=== PATIENT | female | born 1955 | race Caucasian/White ===

== ENCOUNTER → 2017-03-22 | Outpatient (CLI) | payer OTHER ==
[~2017-03-22] MED LIST: ADV250 IH; ALBU8.5H3 IH; CYCL10 PO; EVEP1CAP PO; FLUT16H NASAL; LOSA100T29 PO; MULT-68 PO; SOY155CA AD; SUMA25TA9 PO
== END | disposition home or self-care (01) ==
LOC: RADPV 11:03
PROVIDERS: ATTEND Internal Medicine
DX: I87.2 Venous insufficiency (chronic) (peripheral) (principal)
CPT/HCPCS: 93970

== ENCOUNTER → 2017-04-23 | Outpatient (CLI) | payer OTHER ==
[2017-04-23 16:44] LABS: BASOPHILS % (AUTO) 0.5 % (0.0-2.0); HEMATOCRIT 41.9 % (36-46); HEMOGLOBIN 14.2 g/dL (12.0-16.0); LYMPHOCYTES # (AUTO) 2.1 K/uL (1.0-4.8); LYMPHOCYTES % (AUTO) 33.5 % (22.0-44.0); MEAN CORPUSCULAR HEMOGLOBIN 29.9 pg (26.0-34.0); MEAN CORPUSCULAR HGB CONC 33.8 G/dL (31.0-37.0); MEAN CORPUSCULAR VOLUME 88 fL (80-100); MONOCYTES # (AUTO) 0.5 K/uL (0.1-1.0); NEUTROPHILS # (AUTO) 3.5 K/uL (1.8-7.7); PLATELET COUNT (AUTO) 226 K/uL (150-450); RED BLOOD CELL COUNT(AUTO) 4.74 MIL/uL (4.00-5.20); RED CELL DISTRIBUTION WIDTH 14.2 % (11.5-14.5); WHITE BLOOD COUNT (AUTO) 6.4 K/uL (4.5-11.0)
[2017-04-23 17:09] LABS: HEMOGLOBIN A1C 6.1 % (4.5-6.2)
[2017-04-23 17:22] LABS: ALANINE AMINOTRANSFERASE 90 U/L (12-78); ALBUMIN 3.8 g/dL (3.4-5.0); ANION GAP 8 mmol/L (8-16); ASPARTATE AMINOTRANSFERASE 57 U/L (15-37); BILIRUBIN,TOTAL 0.3 mg/dL (0.1-1.0); CALCIUM, TOTAL 8.9 mg/dL (8.8-10.5); CARBON DIOXIDE 27 mmol/L (22-29); CHLORIDE 102 mmol/L (98-107); CHOL/HDL RATIO 4.1 (3.9-5.7); GLOMERULAR FILTR. RATE CALC > 60 mL/min (>60); SODIUM SERUM 137 mmol/L (136-145); THYROID STIMULATING HORMONE 3.15 uIU/mL (0.36-3.74); TOTAL PROTEIN, SERUM 7.5 g/dL (6.4-8.2); UREA NITROGEN, BLOOD 13 mg/dL (7-18)
== END | disposition home or self-care (01) ==
LOC: LABPV 15:37
PROVIDERS: ATTEND Internal Medicine
DX: Z00.00 Encounter for general adult medical examination without abnormal findings (principal); Z79.899 Other long term (current) drug therapy
CPT/HCPCS: 83036; 84443

== ENCOUNTER → 2017-05-09 | Outpatient (CLI) | payer OTHER ==
[2017-05-09 12:43] LABS: ALBUMIN 3.8 g/dL (3.4-5.0); BILIRUBIN,TOTAL 0.5 mg/dL (0.1-1.0); TOTAL PROTEIN, SERUM 7.4 g/dL (6.4-8.2)
[2017-05-09 12:44] LABS: BILIRUBIN,DIRECT 0.1 mg/dL (0.00-0.20)
== END | disposition home or self-care (01) ==
LOC: LABPV 09:15
PROVIDERS: ATTEND Internal Medicine
DX: K76.0 Fatty (change of) liver, not elsewhere classified (principal)

== ENCOUNTER → 2017-05-14 | Outpatient (CLI) | payer OTHER | END | disposition home or self-care (01) | LOC: RADMN 15:55 | PROVIDERS: ATTEND Orthopaedic Surgery | DX: M17.12 Unilateral primary osteoarthritis, left knee (principal); Z91.81 History of falling; M25.762 Osteophyte, left knee ==

== ENCOUNTER → 2017-05-27 | Outpatient (CLI) | payer OTHER | END | disposition home or self-care (01) | LOC: RADPV 08:09 | PROVIDERS: ATTEND Internal Medicine | DX: R16.0 Hepatomegaly, not elsewhere classified (principal); Z90.49 Acquired absence of other specified parts of digestive tract | CPT/HCPCS: 76700 ==

== ENCOUNTER → 2017-06-07 | Outpatient (CLI) | payer OTHER | END | disposition home or self-care (01) | LOC: RADMN 15:44 | PROVIDERS: ATTEND Internal Medicine | DX: J45.909 Unspecified asthma, uncomplicated (principal) | CPT/HCPCS: 71020 ==

== ENCOUNTER 2017-09-09 09:57 | Inpatient (IN) | payer OTHER ==
[2017-09-03 12:37] LABS: BASOPHILS % (AUTO) 0.9 % (0.0-2.0); EOSINOPHILS % (AUTO) 1.6 % (1.0-6.0); HEMATOCRIT 40.2 % (36-46); HEMOGLOBIN 13.6 g/dL (12.0-16.0); LYMPHOCYTES # (AUTO) 1.4 K/uL (1.0-4.8); LYMPHOCYTES % (AUTO) 21.7 % (22.0-44.0); MEAN CORPUSCULAR HEMOGLOBIN 30.4 pg (26.0-34.0); MEAN CORPUSCULAR HGB CONC 33.8 G/dL (31.0-37.0); MEAN CORPUSCULAR VOLUME 90 fL (80-100); MONOCYTES # (AUTO) 0.4 K/uL (0.1-1.0); NEUTROPHILS # (AUTO) 4.5 K/uL (1.8-7.7); NEUTROPHILS % (AUTO) 69.8 % (40.0-70.0); PLATELET COUNT (AUTO) 202 K/uL (150-450); RED BLOOD CELL COUNT(AUTO) 4.47 MIL/uL (4.00-5.20); RED CELL DISTRIBUTION WIDTH 13.8 % (11.5-14.5)
[2017-09-03 12:45] LABS: ANION GAP 9 mmol/L (8-16); CARBON DIOXIDE 26 mmol/L (22-29); CHLORIDE 103 mmol/L (98-107); CREATININE 0.73 mg/dL (0.60-1.30); GLOMERULAR FILTR. RATE CALC > 60 mL/min (>60); GLUCOSE,RANDOM 101 mg/dL (70-110); POTASSIUM 3.7 mmol/L (3.5-5.1); SODIUM SERUM 138 mmol/L (136-145); UREA NITROGEN, BLOOD 20 mg/dL (7-18)
[2017-09-03 12:48] LABS: INR 1.1 (0.9-1.1); PROTHROMBIN TIME 11.3 SEC (9.4-11.6)
[2017-09-03 12:51] LABS: ALANINE AMINOTRANSFERASE 72 U/L (12-78); ALBUMIN 3.8 g/dL (3.4-5.0); ALKALINE PHOSPHATASE 79 U/L (46-116); ASPARTATE AMINOTRANSFERASE 42 U/L (15-37); BILIRUBIN,TOTAL 0.5 mg/dL (0.1-1.0); TOTAL PROTEIN, SERUM 7.2 g/dL (6.4-8.2)
[~2017-09-09] VITALS: Ht 170.2 cm; Wt 115.0 kg
[~2017-09-09 09:57] MED LIST changes: +BUPIVACAINE HCL 0.5% 50 ML VIAL ONE; +CeFAZolin 2 GM/DEXTROSE 0 ML IV ONE; +CeFAZolin 2 GM/DEXTROSE 50 ML IV ONE; +EPHEDrine SULFATE 50 MG/ML VIAL IM ONE; +FentaNYL CITRATE-PF 100 MCG/2 ML VIAL IVP ONE; +GLYCOPYRROLATE 0.2 MG/ML VIAL IM ONE; +KETAMINE HCL 50 MG/ML 10 ML VIAL IVP ONE; +LIDOCAINE HCL/PF 2% 5 ML VIAL IM ONE; +METOCLOPRAMIDE HCL 5 MG/ML 2 ML VIAL IVP ONE; +MIDAZOLAM HCL 2 MG/2 ML VIAL IVP ONE; +ONDANSETRON HCL 4 MG/2 ML VIAL IVP ONE; +PROPOFOL 1% 20 ML VIAL IVP ONE; +RINGERS SOLUTION,LACTATED 1,000 ML IV ONE; +RINGERS SOLUTION,LACTATED 1,000 ML IV SCH; +TRANEXAMIC ACID 1,000 MG in DEXTROSE 5%-WATER 50 ML IV ONE
[2017-09-09] MEDS ORDERED: PROPOFOL 1000 MG/ISO-OSM 100 ML IV ONE ×2 (10:00→12:27)
[2017-09-09] MEDS ORDERED: BUPIVACAINE LIPOSOME/PF 1.3%-13.3MG/ML SUSPENSION 20 ML VIAL INJ ONE (10:15)
[2017-09-09] MEDS ORDERED: VANCOMYCIN HCL 1 GM/VIAL ONE ×2 (10:28→11:15)
[2017-09-09] MEDS: RINGERS SOLUTION,LACTATED 1,000 ML IV SCH (10:28)
[2017-09-09] MEDS ORDERED: SODIUM CL IRRIG SOLN BAG 3,000 ML IRRIG ONE ×2 (10:28→12:23)
[2017-09-09] MEDS ORDERED: MEPERIDINE-PF 25 MG/ML SYRINGE IVP PRN (10:30)
[2017-09-09] MEDS ORDERED: ZOLPIDEM TARTRATE 5 MG TABLET PO PRN (10:30)
[2017-09-09] MEDS ORDERED: CELECOXIB 200 MG CAPSULE PO ONE (10:30)
[2017-09-09] MEDS ORDERED: PROMETHAZINE HCL 25 MG/ML VIAL IM PRN (10:30)
[2017-09-09] MEDS ORDERED: FentaNYL CITRATE-PF 100 MCG/2 ML VIAL IVP PRN (10:30)
[2017-09-09] MEDS ORDERED: HYDROmorphone 2 MG/ML SYRINGE IVP PRN (10:30)
[2017-09-09] MEDS ORDERED: SODIUM CHLORIDE 0.9% 100 ML ONE (11:15)
[2017-09-09] MEDS ORDERED: SUMAtriptan SUCCINATE 25 MG TABLET PO PRN (13:15)
[2017-09-09] MEDS: ONDANSETRON HCL 4 MG/2 ML VIAL IVP PRN ×2 (15:02→20:13)
[2017-09-09] MEDS: HYDROmorphone 2 MG/ML SYRINGE IVP PRN ×2 (15:19→20:18)
[2017-09-09] MEDS: ACETAMINOPHEN 1000 MG/ISO-OSM 100 ML IV SCH ×3 (16:27→23:53)
[2017-09-09] MEDS: CeFAZolin 2 GM/DEXTROSE 50 ML IV SCH (19:55)
[2017-09-09 20:18] VITALS: BP 134/62
[2017-09-09] MEDS: CELECOXIB 200 MG CAPSULE PO SCH (21:27)
[2017-09-09 23:57] VITALS: BP 119/65
[2017-09-10] MEDS: RINGERS SOLUTION,LACTATED 1,000 ML IV SCH ×2 (00:01→20:00)
[2017-09-10 03:35] VITALS: BP 121/60
[2017-09-10] MEDS: CeFAZolin 2 GM/DEXTROSE 50 ML IV SCH ×2 (03:35→11:25)
[2017-09-10] MEDS: CYCLOBENZAPRINE HCL 10 MG TABLET PO PRN ×2 (03:35→22:31)
[2017-09-10] MEDS: HYDROmorphone 2 MG/ML SYRINGE IVP PRN ×2 (03:36→11:26)
[2017-09-10] MEDS: OXYGEN THERAPY IH SCH ×2 (03:41→20:00)
[2017-09-10] MEDS: ACETAMINOPHEN 1000 MG/ISO-OSM 100 ML IV SCH ×2 (05:47→10:30)
[2017-09-10 08:00] VITALS: BP 131/67
[2017-09-10] MEDS ORDERED: [UNRECOGNIZED DRUG - MIXTURE] AD SCH (09:00)
[2017-09-10] MEDS ORDERED: [UNRECOGNIZED DRUG - OTHER] PO SCH (09:00)
[2017-09-10] MEDS: FLUTICASONE PROPIONATE 50 MCG/SPRAY 16 GM NASAL SPRAY NASAL SCH (09:15)
[2017-09-10] MEDS: ENOXAPARIN SODIUM 40 MG/0.4 ML PF SYRINGE SQ SCH (09:15)
[2017-09-10] MEDS: LOSARTAN POTASSIUM 50 MG TABLET PO SCH (09:16)
[2017-09-10] MEDS: MULTIVITAMINS, THERAPEUTIC TABLET PO SCH (09:16)
[2017-09-10] MEDS: CELECOXIB 200 MG CAPSULE PO SCH ×2 (09:16→20:12)
[2017-09-10 11:25] VITALS: BP 108/47
[2017-09-10] MEDS: ONDANSETRON HCL 4 MG/2 ML VIAL IVP PRN (11:25)
[2017-09-10 16:30] VITALS: BP 127/53
[2017-09-10] MEDS: OxyCODONE HCL/ACETAMINOPHEN 10-325 MG TABLET PO PRN (16:48)
[2017-09-10 20:05] VITALS: BP 104/44
[2017-09-10 23:53] VITALS: BP 104/56
[2017-09-11] MEDS: HYDROmorphone 2 MG/ML SYRINGE IVP PRN (03:43)
[2017-09-11 03:49] VITALS: BP 109/59
[2017-09-11 08:00] VITALS: BP 123/67
[2017-09-11] MEDS: ENOXAPARIN SODIUM 40 MG/0.4 ML PF SYRINGE SQ SCH (08:41)
[2017-09-11] MEDS: LOSARTAN POTASSIUM 50 MG TABLET PO SCH (08:41)
[2017-09-11] MEDS: MULTIVITAMINS, THERAPEUTIC TABLET PO SCH (08:41)
[2017-09-11] MEDS: CELECOXIB 200 MG CAPSULE PO SCH (08:42)
[2017-09-11] MEDS: FLUTICASONE PROPIONATE 50 MCG/SPRAY 16 GM NASAL SPRAY NASAL SCH (08:42)
[2017-09-11 09:05] VITALS: BP 123/67
[2017-09-11] MEDS: OxyCODONE HCL/ACETAMINOPHEN 10-325 MG TABLET PO PRN ×2 (09:09→16:16)
[2017-09-11 16:13] VITALS: BP 133/68
[2017-09-11] MEDS ORDERED: PERCT10 PO (17:49)
[2017-09-11] MEDS ORDERED: ENOX40DI9 SQ (17:52)
[2017-09-11] MEDS: CYCLOBENZAPRINE HCL 10 MG TABLET PO PRN (18:12)
== END 2017-09-11 18:30 | disposition home health service (06) | DRG 470 ==
LOC: 4E 09:57
PROVIDERS: ADMIT Orthopaedic Surgery; ATTEND Orthopaedic Surgery
PROC: 0SRD0J9 Replacement of Left Knee Joint with Synthetic Substitute, Cemented, Open Approach (ICD-10-PCS; principal; 2017-09-09 12:00)
DX: M17.12 Unilateral primary osteoarthritis, left knee (principal); I11.0 Hypertensive heart disease with heart failure; I50.9 Heart failure, unspecified; I25.10 Atherosclerotic heart disease of native coronary artery without angina pectoris; J45.909 Unspecified asthma, uncomplicated; Z90.710 Acquired absence of both cervix and uterus; Z79.899 Other long term (current) drug therapy
CPT/HCPCS: 87081; 88300; 97110; 97116; 97161; 97166; 97530; 97535; C9290; J0131; J0690; J1170; J1650; J2250; J2405; J2704; J2765; J3010; J3370; J3490; J7050; J7060; J7120

== ENCOUNTER → 2017-10-21 | Outpatient (CLI) | payer OTHER ==
[~2017-10-21] MED LIST changes: -BUPIVACAINE HCL 0.5% 50 ML VIAL ONE; -CeFAZolin 2 GM/DEXTROSE 0 ML IV ONE; -CeFAZolin 2 GM/DEXTROSE 50 ML IV ONE; +ENOX40DI9 SQ; -EPHEDrine SULFATE 50 MG/ML VIAL IM ONE; -FentaNYL CITRATE-PF 100 MCG/2 ML VIAL IVP ONE; -GLYCOPYRROLATE 0.2 MG/ML VIAL IM ONE; -KETAMINE HCL 50 MG/ML 10 ML VIAL IVP ONE; -LIDOCAINE HCL/PF 2% 5 ML VIAL IM ONE; -METOCLOPRAMIDE HCL 5 MG/ML 2 ML VIAL IVP ONE; -MIDAZOLAM HCL 2 MG/2 ML VIAL IVP ONE; -ONDANSETRON HCL 4 MG/2 ML VIAL IVP ONE; +PERCT10 PO; -PROPOFOL 1% 20 ML VIAL IVP ONE; -RINGERS SOLUTION,LACTATED 1,000 ML IV ONE; -RINGERS SOLUTION,LACTATED 1,000 ML IV SCH; -TRANEXAMIC ACID 1,000 MG in DEXTROSE 5%-WATER 50 ML IV ONE
== END | disposition home or self-care (01) ==
LOC: RADPV 09:22
PROVIDERS: ATTEND Orthopaedic Surgery
DX: M25.462 Effusion, left knee (principal); Z96.652 Presence of left artificial knee joint

== ENCOUNTER → 2018-02-07 | Outpatient (CLI) | payer OTHER | END | disposition home or self-care (01) | LOC: RADPV 07:18 | PROVIDERS: ATTEND Orthopaedic Surgery | DX: Z47.1 Aftercare following joint replacement surgery (principal); M43.16 Spondylolisthesis, lumbar region; Z96.652 Presence of left artificial knee joint | CPT/HCPCS: 72100 ==

== ENCOUNTER → 2018-03-07 | Outpatient (CLI) | payer OTHER | END | disposition home or self-care (01) | LOC: RADMN 09:37 | PROVIDERS: ATTEND Orthopaedic Surgery | DX: M51.17 Intervertebral disc disorders with radiculopathy, lumbosacral region (principal); M43.17 Spondylolisthesis, lumbosacral region; D18.09 Hemangioma of other sites | CPT/HCPCS: 72148 ==

== ENCOUNTER → 2018-06-03 | Outpatient (CLI) | payer OTHER | END | disposition home or self-care (01) | LOC: RADPV 13:11 | PROVIDERS: ATTEND Internal Medicine | DX: M25.562 Pain in left knee (principal); I25.10 Atherosclerotic heart disease of native coronary artery without angina pectoris; I11.0 Hypertensive heart disease with heart failure; I50.9 Heart failure, unspecified; Z79.899 Other long term (current) drug therapy ==

== ENCOUNTER 2018-08-15 22:43 | Emergency (ER) | payer OTHER ==
[~2018-08-15] VITALS: Ht 165.1 cm; Wt 102.0 kg
[~2018-08-15 22:43] MED LIST changes: +LOSA100T20 PO; -LOSA100T29 PO
[2018-08-15] MEDS ORDERED: TRAM50TA4 PO (22:56)
[2018-08-15] MEDS ORDERED: GABA-529 PO (22:56)
[2018-08-15] MEDS ORDERED: GABA-531 PO (22:56)
[2018-08-15] MEDS ORDERED: DICL75TA5 PO (22:56)
[2018-08-16] MEDS ORDERED: KETOROLAC TROMETHAMINE 30 MG/ML VIAL IVP ONE (00:30)
[2018-08-16] MEDS ORDERED: MORPHINE SULFATE 2 MG/ML SYRINGE IVP ONE (00:30)
[2018-08-16] MEDS ORDERED: ONDANSETRON HCL 4 MG/2 ML VIAL IVP ONE (00:30)
[2018-08-16] MEDS ORDERED: MORPHINE SULFATE 4 MG/ML SYRINGE IVP ONE (00:30)
[2018-08-16 02:15] VITALS: BP 129/69
[2018-08-16] MEDS ORDERED: DiphenhydrAMINE HCL 50 MG/ML VIAL IVP ONE (02:15)
== END 2018-08-16 02:35 | disposition home or self-care (01) ==
LOC: EMS 22:44
DX: S76.011A Strain of muscle, fascia and tendon of right hip, initial encounter (principal); G89.29 Other chronic pain; M25.562 Pain in left knee; J45.909 Unspecified asthma, uncomplicated; I11.0 Hypertensive heart disease with heart failure; I50.9 Heart failure, unspecified; I25.10 Atherosclerotic heart disease of native coronary artery without angina pectoris; Z96.652 Presence of left artificial knee joint; Z98.890 Other specified postprocedural states; Z90.49 Acquired absence of other specified parts of digestive tract; Z90.710 Acquired absence of both cervix and uterus; Z91.030 Bee allergy status; Z79.899 Other long term (current) drug therapy; Z79.891 Long term (current) use of opiate analgesic; Z79.1 Long term (current) use of non-steroidal anti-inflammatories (NSAID); X58.XXXA Exposure to other specified factors, initial encounter; Y93.89 Activity, other specified; Y92.89 Other specified places as the place of occurrence of the external cause; Y99.8 Other external cause status
CPT/HCPCS: 73502; 96374; 96375; 99284; J1200; J1885; J2270; J2405

== ENCOUNTER → 2018-09-30 | Outpatient (CLI) | payer OTHER ==
[~2018-09-30] MED LIST changes: -ADV250 IH; -ALBU8.5H3 IH; -CYCL10 PO; +DICL75TA5 PO; -ENOX40DI9 SQ; -EVEP1CAP PO; -FLUT16H NASAL; +GABA-529 PO; +GABA-531 PO; -MULT-68 PO; -PERCT10 PO; -SOY155CA AD; -SUMA25TA9 PO; +TRAM50TA4 PO
== END | disposition home or self-care (01) ==
LOC: RADMN 11:19
PROVIDERS: ATTEND Orthopaedic Surgery
DX: M25.562 Pain in left knee (principal)
CPT/HCPCS: 73700

== ENCOUNTER → 2018-11-13 | Outpatient (CLI) | payer OTHER ==
[~2018-11-13] MED LIST changes: -LOSA100T20 PO; +LOSA100T58 PO
[2018-11-13 14:49] LABS: APPEARANCE,URINE CLEAR (CLEAR); BILIRUBIN,URINE NEGATIVE (NEGATIVE); GLUCOSE, URINE (UA) NEGATIVE (NEGATIVE); KETONES,URINE NEGATIVE (NEGATIVE); LEUKOCYTE ESTERASE ,URINE SMALL (NEGATIVE); NITRATE,URINE NEGATIVE (NEGATIVE); OCCULT BLOOD,URINE SMALL (NEGATIVE); PH,URINE 5.5 (5.0-8.0); PROTEIN,URINE NEGATIVE (NEGATIVE); UROBILINOGEN,URINE 0.2 mg/dL (<=1.0)
[2018-11-13 14:55] LABS: BACTERIA,URINE None Seen /HPF (None Seen); SQUAMOUS EPITHELIAL CELL,UR Few /LPF (None Seen)
== END | disposition home or self-care (01) ==
LOC: LABPV 12:22
PROVIDERS: ATTEND Internal Medicine
DX: R30.0 Dysuria (principal)

== ENCOUNTER → 2019-02-27 | Outpatient (CLI) | payer OTHER ==
[2019-02-27 10:41] LABS: BASOPHILS % (AUTO) 0.6 % (0.0-2.0); EOSINOPHILS % (AUTO) 4.5 % (1.0-6.0); HEMOGLOBIN 14.3 g/dL (12.0-16.0); LYMPHOCYTES # (AUTO) 1.2 K/uL (1.0-4.8); LYMPHOCYTES % (AUTO) 29.5 % (22.0-44.0); MEAN CORPUSCULAR HEMOGLOBIN 29.6 pg (26.0-34.0); MEAN CORPUSCULAR HGB CONC 32.6 G/dL (31.0-37.0); MEAN CORPUSCULAR VOLUME 91 fL (80-100); MONOCYTES # (AUTO) 0.2 K/uL (0.1-1.0); MONOCYTES % (AUTO) 6.1 % (2.0-9.0); NEUTROPHILS # (AUTO) 2.4 K/uL (1.8-7.7); NEUTROPHILS % (AUTO) 59.3 % (40.0-70.0); PLATELET COUNT (AUTO) 233 K/uL (150-450); RED BLOOD CELL COUNT(AUTO) 4.85 MIL/uL (4.00-5.20); RED CELL DISTRIBUTION WIDTH 13.5 % (11.5-14.5)
[2019-02-27 12:58] LABS: ERYTHROCYTE SEDIMENTATION RATE 20 MM/HR (0-20)
== END | disposition home or self-care (01) ==
LOC: LABPV 07:26
PROVIDERS: ATTEND Orthopaedic Surgery
DX: Z96.652 Presence of left artificial knee joint (principal)
CPT/HCPCS: 85651; 86140

== ENCOUNTER 2019-07-10 09:45 | Inpatient (IN) | payer OTHER ==
[~2019-07-10] VITALS: Ht 165.1 cm; Wt 111.6 kg
[2019-07-10 10:00] VITALS: BP 135/76
[2019-07-10] MEDS: HYDROCODONE/ACETAMINOPHEN 10-325 MG TABLET PO PRN (14:21)
[2019-07-10] MEDS ORDERED: SUMAtriptan SUCCINATE 25 MG TABLET PO PRN (14:30)
[2019-07-10] MEDS ORDERED: BISACODYL 10 MG RECTAL RECTAL SUPPOSITORY PR PRN (14:30)
[2019-07-10] MEDS ORDERED: MAGNESIUM HYDROXIDE SUSPENSION 30 ML UDCUP PO PRN (14:30)
[2019-07-10] MEDS ORDERED: ALBUTEROL SULFATE HFA 90 MCG/PUFF 8 GM INHALER IH PRN (14:30)
[2019-07-10 15:21] VITALS: BP 122/69
[2019-07-10] MEDS ORDERED: HEPARIN SODIUM,PORCINE 100 UNITS/ML 5 ML VIAL IVP SCH (16:00)
[2019-07-10] MEDS ORDERED: SODIUM CHLORIDE 0.9% 100 ML ONE ×2 (16:12→17:41)
[2019-07-10] MEDS: GABAPENTIN 100 MG CAPSULE PO SCH ×2 (16:33→22:43)
[2019-07-10] MEDS: VANCOMYCIN HCL 1 GM/D5% WATER 200 ML IV SCH ×2 (16:50→22:33)
[2019-07-10] MEDS: 0.9% SODIUM CHLORIDE 10 ML SYRINGE IVP SCH ×2 (20:04→22:34)
[2019-07-10 21:15] VITALS: BP 130/77
[2019-07-10] MEDS: CHLORHEXIDINE GLUCONATE 4% 118 ML TOPICAL LIQUID TP SCH (21:21)
[2019-07-10] MEDS: SENNA/DOCUSATE SODIUM 8.6-50 MG TABLET PO SCH (21:21)
[2019-07-10] MEDS: APIXABAN 2.5 MG TABLET PO SCH (21:21)
[2019-07-10] MEDS: HYDROCODONE/ACETAMINOPHEN 5-325 MG TABLET PO PRN (21:21)
[2019-07-11] VITALS: BP 122/67
[2019-07-11] MEDS ORDERED: HEPARIN SODIUM,PORCINE 100 UNITS/ML 5 ML VIAL IVP SCH (06:00)
[2019-07-11] MEDS: VANCOMYCIN HCL 1 GM/D5% WATER 200 ML IV SCH ×3 (06:07→22:20)
[2019-07-11] MEDS: GABAPENTIN 100 MG CAPSULE PO SCH ×3 (06:39→22:27)
[2019-07-11] MEDS: SENNA/DOCUSATE SODIUM 8.6-50 MG TABLET PO SCH ×2 (08:19→20:26)
[2019-07-11] MEDS: HEPARIN SODIUM,PORCINE 100 UNITS/ML 5 ML VIAL IVP SCH ×2 (08:19→16:27)
[2019-07-11] MEDS: AmLODIPine BESYLATE 5 MG TABLET PO SCH (08:19)
[2019-07-11] MEDS: 0.9% SODIUM CHLORIDE 10 ML SYRINGE IVP SCH ×2 (08:19→16:26)
[2019-07-11] MEDS: LOSARTAN POTASSIUM 50 MG TABLET PO SCH (08:19)
[2019-07-11] MEDS: APIXABAN 2.5 MG TABLET PO SCH ×2 (08:19→20:25)
[2019-07-11 09:32] LABS: BASOPHILS % (AUTO) 0.8 % (0.0-2.0); EOSINOPHILS % (AUTO) 6.8 % (1.0-6.0); HEMATOCRIT 43.9 % (36-46); HEMOGLOBIN 13.9 g/dL (12.0-16.0); LYMPHOCYTES % (AUTO) 24.6 % (22.0-44.0); MEAN CORPUSCULAR HEMOGLOBIN 28.9 pg (26.0-34.0); MEAN CORPUSCULAR HGB CONC 31.8 G/dL (31.0-37.0); MEAN CORPUSCULAR VOLUME 91 fL (80-100); MONOCYTES # (AUTO) 0.3 K/uL (0.1-1.0); MONOCYTES % (AUTO) 7.9 % (2.0-9.0); NEUTROPHILS # (AUTO) 2.4 K/uL (1.8-7.7); NEUTROPHILS % (AUTO) 59.9 % (40.0-70.0); PLATELET COUNT (AUTO) 223 K/uL (150-450); RED BLOOD CELL COUNT(AUTO) 4.83 MIL/uL (4.00-5.20); RED CELL DISTRIBUTION WIDTH 13.7 % (11.5-14.5)
[2019-07-11 09:39] VITALS: BP 119/69
[2019-07-11] MEDS: HYDROCODONE/ACETAMINOPHEN 10-325 MG TABLET PO PRN ×2 (09:44→18:39)
[2019-07-11 09:49] LABS: ALANINE AMINOTRANSFERASE 56 U/L (12-78); ALKALINE PHOSPHATASE 97 U/L (46-116); ANION GAP 12 mmol/L (8-16); ASPARTATE AMINOTRANSFERASE 43 U/L (15-37); BILIRUBIN,TOTAL 0.4 mg/dL (0.1-1.0); C-REACTIVE PROTEIN QUANT 0.51 mg/dL (0.00-0.30); CALCIUM, TOTAL 9.5 mg/dL (8.8-10.5); CARBON DIOXIDE 28 mmol/L (22-29); CHLORIDE 103 mmol/L (98-107); CREATININE 0.71 mg/dL (0.60-1.30); GLOMERULAR FILTR. RATE CALC > 60 mL/min (>60); GLUCOSE,RANDOM 101 mg/dL (70-110); POTASSIUM 3.8 mmol/L (3.5-5.1); SODIUM SERUM 143 mmol/L (136-145); TOTAL PROTEIN, SERUM 7.6 g/dL (6.4-8.2); UREA NITROGEN, BLOOD 9 mg/dL (7-18)
[2019-07-11 10:38] LABS: ERYTHROCYTE SEDIMENTATION RATE 23 MM/HR (0-20)
[2019-07-11] MEDS ORDERED: MELATONIN 3 MG TABLET PO PRN (14:00)
[2019-07-11 15:35] VITALS: BP 127/65
[2019-07-11] MEDS: CHLORHEXIDINE GLUCONATE 4% 118 ML TOPICAL LIQUID TP SCH (20:25)
[2019-07-12 00:30] VITALS: BP 106/54
[2019-07-12] MEDS: 0.9% SODIUM CHLORIDE 10 ML SYRINGE IVP SCH ×3 (00:41→16:20)
[2019-07-12] MEDS: HEPARIN SODIUM,PORCINE 100 UNITS/ML 5 ML VIAL IVP SCH ×3 (00:42→16:20)
[2019-07-12] MEDS: VANCOMYCIN HCL 1 GM/D5% WATER 200 ML IV SCH ×3 (06:00→21:43)
[2019-07-12] MEDS: PANTOPRAZOLE SODIUM 40 MG DR TABLET PO SCH (06:11)
[2019-07-12] MEDS: GABAPENTIN 100 MG CAPSULE PO SCH ×3 (06:18→21:42)
[2019-07-12] MEDS: APIXABAN 2.5 MG TABLET PO SCH ×2 (08:17→21:42)
[2019-07-12] MEDS: LOSARTAN POTASSIUM 50 MG TABLET PO SCH (08:17)
[2019-07-12] MEDS: SENNA/DOCUSATE SODIUM 8.6-50 MG TABLET PO SCH ×2 (08:17→21:42)
[2019-07-12] MEDS: AmLODIPine BESYLATE 5 MG TABLET PO SCH (08:17)
[2019-07-12 08:33] LABS: ANION GAP 6 mmol/L (8-16); CALCIUM, TOTAL 8.9 mg/dL (8.8-10.5); CARBON DIOXIDE 28 mmol/L (22-29); CHLORIDE 104 mmol/L (98-107); CREATININE 0.68 mg/dL (0.60-1.30); GLOMERULAR FILTR. RATE CALC > 60 mL/min (>60); GLUCOSE,RANDOM 112 mg/dL (70-110); POTASSIUM 3.9 mmol/L (3.5-5.1); SODIUM SERUM 138 mmol/L (136-145); UREA NITROGEN, BLOOD 13 mg/dL (7-18)
[2019-07-12] MEDS ORDERED: POLYETHYLENE GLYCOL 3350 17 GM PACKET PO PRN (09:00)
[2019-07-12] MEDS ORDERED: POLYETHYLENE GLYCOL 3350 17 GM PACKET PO SCH (09:00)
[2019-07-12 09:15] VITALS: BP 107/52
[2019-07-12] MEDS: HYDROCODONE/ACETAMINOPHEN 10-325 MG TABLET PO PRN ×2 (10:23→16:27)
[2019-07-12 15:10] VITALS: BP 93/45
[2019-07-12] MEDS: CHLORHEXIDINE GLUCONATE 4% 118 ML TOPICAL LIQUID TP SCH (21:42)
[2019-07-12] MEDS: HYDROCODONE/ACETAMINOPHEN 5-325 MG TABLET PO PRN (21:58)
[2019-07-13] VITALS: BP 100/52
[2019-07-13] MEDS: HEPARIN SODIUM,PORCINE 100 UNITS/ML 5 ML VIAL IVP SCH ×4 (00:08→23:59)
[2019-07-13] MEDS: 0.9% SODIUM CHLORIDE 10 ML SYRINGE IVP SCH ×3 (00:08→17:55)
[2019-07-13] MEDS: PANTOPRAZOLE SODIUM 40 MG DR TABLET PO SCH (06:20)
[2019-07-13] MEDS: GABAPENTIN 100 MG CAPSULE PO SCH ×2 (06:20→14:20)
[2019-07-13] MEDS: VANCOMYCIN HCL 1 GM/D5% WATER 200 ML IV SCH ×3 (06:20→21:53)
[2019-07-13 07:21] LABS: ANION GAP 7 mmol/L (8-16); CALCIUM, TOTAL 9.2 mg/dL (8.8-10.5); CARBON DIOXIDE 30 mmol/L (22-29); CHLORIDE 103 mmol/L (98-107); CREATININE 0.69 mg/dL (0.60-1.30); GLOMERULAR FILTR. RATE CALC > 60 mL/min (>60); GLUCOSE,RANDOM 96 mg/dL (70-110); POTASSIUM 3.7 mmol/L (3.5-5.1); SODIUM SERUM 140 mmol/L (136-145)
[2019-07-13 07:42] LABS: UREA NITROGEN, BLOOD 17 mg/dL (7-18)
[2019-07-13 07:49] VITALS: BP 148/80
[2019-07-13] MEDS: SENNA/DOCUSATE SODIUM 8.6-50 MG TABLET PO SCH ×2 (08:27→20:05)
[2019-07-13] MEDS: LOSARTAN POTASSIUM 50 MG TABLET PO SCH (08:27)
[2019-07-13] MEDS: APIXABAN 2.5 MG TABLET PO SCH ×2 (08:27→20:05)
[2019-07-13] MEDS: AmLODIPine BESYLATE 5 MG TABLET PO SCH (08:27)
[2019-07-13] MEDS: HYDROCODONE/ACETAMINOPHEN 10-325 MG TABLET PO PRN ×2 (09:27→19:03)
[2019-07-13] MEDS ORDERED: SODIUM CHLORIDE 0.9% 50 ML ONE (14:42)
[2019-07-13 15:29] VITALS: BP 119/75
[2019-07-13] MEDS: CHLORHEXIDINE GLUCONATE 4% 118 ML TOPICAL LIQUID TP SCH (20:06)
[2019-07-13] MEDS ORDERED: SODIUM CHLORIDE 0.9% 1,000 ML IV ONE (21:36)
[2019-07-13 23:10] VITALS: BP 120/58
[2019-07-14] MEDS: PANTOPRAZOLE SODIUM 40 MG DR TABLET PO SCH (05:53)
[2019-07-14] MEDS: GABAPENTIN 100 MG CAPSULE PO SCH ×4 (05:53→22:16)
[2019-07-14] MEDS: VANCOMYCIN HCL 1 GM/D5% WATER 200 ML IV SCH (06:10)
[2019-07-14 07:20] LABS: ANION GAP 10 mmol/L (8-16); CALCIUM, TOTAL 9.1 mg/dL (8.8-10.5); CARBON DIOXIDE 27 mmol/L (22-29); CHLORIDE 103 mmol/L (98-107); CREATININE 0.63 mg/dL (0.60-1.30); GLOMERULAR FILTR. RATE CALC > 60 mL/min (>60); GLUCOSE,RANDOM 104 mg/dL (70-110); POTASSIUM 3.8 mmol/L (3.5-5.1); SODIUM SERUM 140 mmol/L (136-145); UREA NITROGEN, BLOOD 13 mg/dL (7-18); VANCOMYCIN,RANDOM 31.8 mcg/mL (25.0-50.0)
[2019-07-14 07:59] VITALS: BP 118/78
[2019-07-14] MEDS: 0.9% SODIUM CHLORIDE 10 ML SYRINGE IVP SCH ×3 (08:13→18:28)
[2019-07-14] MEDS: LOSARTAN POTASSIUM 50 MG TABLET PO SCH (08:13)
[2019-07-14] MEDS: HEPARIN SODIUM,PORCINE 100 UNITS/ML 5 ML VIAL IVP SCH ×2 (08:13→20:54)
[2019-07-14] MEDS: AmLODIPine BESYLATE 5 MG TABLET PO SCH (08:14)
[2019-07-14] MEDS: SENNA/DOCUSATE SODIUM 8.6-50 MG TABLET PO SCH ×2 (08:14→20:49)
[2019-07-14] MEDS: APIXABAN 2.5 MG TABLET PO SCH ×2 (08:14→20:49)
[2019-07-14] MEDS: HYDROCODONE/ACETAMINOPHEN 10-325 MG TABLET PO PRN ×3 (08:58→18:04)
[2019-07-14 16:44] VITALS: BP 133/67
[2019-07-14] MEDS: VANCOMYCIN HCL 1.5 GM in DEXTROSE 5%-WATER 250 ML IV SCH (18:28)
[2019-07-14] MEDS: CHLORHEXIDINE GLUCONATE 4% 118 ML TOPICAL LIQUID TP SCH (20:51)
[2019-07-14] MEDS ORDERED: 0.9% SODIUM CHLORIDE 10 ML SYRINGE IVP SCH (22:00)
[2019-07-14 23:30] VITALS: BP 111/68
[2019-07-15] MEDS ORDERED: SODIUM CHLORIDE 0.9% 250 ML IV ONE (05:59)
[2019-07-15] MEDS: GABAPENTIN 100 MG CAPSULE PO SCH ×3 (06:04→21:28)
[2019-07-15] MEDS: PANTOPRAZOLE SODIUM 40 MG DR TABLET PO SCH (06:04)
[2019-07-15] MEDS: VANCOMYCIN HCL 1.5 GM in DEXTROSE 5%-WATER 250 ML IV SCH ×2 (06:06→18:02)
[2019-07-15] MEDS: 0.9% SODIUM CHLORIDE 10 ML SYRINGE IVP SCH ×2 (06:08→18:01)
[2019-07-15 07:33] LABS: ANION GAP 10 mmol/L (8-16); CALCIUM, TOTAL 8.9 mg/dL (8.8-10.5); CARBON DIOXIDE 27 mmol/L (22-29); CHLORIDE 102 mmol/L (98-107); CREATININE 0.76 mg/dL (0.60-1.30); GLOMERULAR FILTR. RATE CALC > 60 mL/min (>60); GLUCOSE,RANDOM 130 mg/dL (70-110); POTASSIUM 3.9 mmol/L (3.5-5.1); SODIUM SERUM 139 mmol/L (136-145); UREA NITROGEN, BLOOD 15 mg/dL (7-18)
[2019-07-15] MEDS: LOSARTAN POTASSIUM 50 MG TABLET PO SCH (08:08)
[2019-07-15] MEDS: AmLODIPine BESYLATE 5 MG TABLET PO SCH (08:08)
[2019-07-15] MEDS: SENNA/DOCUSATE SODIUM 8.6-50 MG TABLET PO SCH ×2 (08:09→20:22)
[2019-07-15] MEDS: APIXABAN 2.5 MG TABLET PO SCH ×2 (08:09→20:22)
[2019-07-15] MEDS: HEPARIN SODIUM,PORCINE 100 UNITS/ML 5 ML VIAL IVP SCH ×2 (08:43→20:23)
[2019-07-15] MEDS: HYDROCODONE/ACETAMINOPHEN 10-325 MG TABLET PO PRN ×3 (10:10→21:28)
[2019-07-15 15:15] VITALS: BP 106/59
[2019-07-15] MEDS: CHLORHEXIDINE GLUCONATE 4% 118 ML TOPICAL LIQUID TP SCH (20:22)
[2019-07-16] VITALS: BP 102/42
[2019-07-16] MEDS: GABAPENTIN 100 MG CAPSULE PO SCH ×3 (05:38→21:00)
[2019-07-16] MEDS: PANTOPRAZOLE SODIUM 40 MG DR TABLET PO SCH (05:38)
[2019-07-16] MEDS: VANCOMYCIN HCL 1.5 GM in DEXTROSE 5%-WATER 250 ML IV SCH (06:44)
[2019-07-16] MEDS: 0.9% SODIUM CHLORIDE 10 ML SYRINGE IVP SCH ×2 (06:44→19:15)
[2019-07-16 07:51] VITALS: BP 111/62
[2019-07-16 07:58] LABS: ANION GAP 8 mmol/L (8-16); CALCIUM, TOTAL 9.1 mg/dL (8.8-10.5); CARBON DIOXIDE 28 mmol/L (22-29); CHLORIDE 103 mmol/L (98-107); CREATININE 0.61 mg/dL (0.60-1.30); GLOMERULAR FILTR. RATE CALC > 60 mL/min (>60); GLUCOSE,RANDOM 101 mg/dL (70-110); POTASSIUM 3.9 mmol/L (3.5-5.1); SODIUM SERUM 139 mmol/L (136-145); UREA NITROGEN, BLOOD 15 mg/dL (7-18); VANCOMYCIN,RANDOM 19.7 mcg/mL (25.0-50.0)
[2019-07-16] MEDS: SENNA/DOCUSATE SODIUM 8.6-50 MG TABLET PO SCH ×2 (08:07→21:00)
[2019-07-16] MEDS: LOSARTAN POTASSIUM 50 MG TABLET PO SCH (08:12)
[2019-07-16] MEDS: AmLODIPine BESYLATE 5 MG TABLET PO SCH (08:12)
[2019-07-16] MEDS: HYDROCODONE/ACETAMINOPHEN 10-325 MG TABLET PO PRN ×2 (08:12→15:51)
[2019-07-16] MEDS: APIXABAN 2.5 MG TABLET PO SCH ×2 (08:13→21:00)
[2019-07-16] MEDS: ACETAMINOPHEN 325 MG TABLET PO PRN (10:07)
[2019-07-16] MEDS: HEPARIN SODIUM,PORCINE 100 UNITS/ML 5 ML VIAL IVP SCH ×2 (10:38→21:01)
[2019-07-16 15:52] VITALS: BP 115/57
[2019-07-16] MEDS: VANCOMYCIN HCL 1.25 GM in DEXTROSE 5%-WATER 250 ML IV SCH (19:15)
[2019-07-16] MEDS ORDERED: SODIUM CHLORIDE 0.9% 100 ML ONE (19:17)
[2019-07-16] MEDS: CHLORHEXIDINE GLUCONATE 4% 118 ML TOPICAL LIQUID TP SCH (21:00)
[2019-07-16] MEDS: LACTOBACILLUS ACIDOPHILUS/BULGARICUS TABLET PO SCH (21:00)
[2019-07-17 00:54] VITALS: BP 109/57
[2019-07-17] MEDS: HYDROCODONE/ACETAMINOPHEN 10-325 MG TABLET PO PRN ×3 (00:54→21:29)
[2019-07-17] MEDS: VANCOMYCIN HCL 1.25 GM in DEXTROSE 5%-WATER 250 ML IV SCH ×2 (06:02→18:09)
[2019-07-17] MEDS: PANTOPRAZOLE SODIUM 40 MG DR TABLET PO SCH (06:02)
[2019-07-17] MEDS: 0.9% SODIUM CHLORIDE 10 ML SYRINGE IVP SCH ×2 (06:02→18:09)
[2019-07-17] MEDS: GABAPENTIN 100 MG CAPSULE PO SCH ×3 (06:02→20:50)
[2019-07-17 07:30] LABS: ANION GAP 6 mmol/L (8-16); CARBON DIOXIDE 29 mmol/L (22-29); CHLORIDE 103 mmol/L (98-107); CREATININE 0.67 mg/dL (0.60-1.30); GLOMERULAR FILTR. RATE CALC > 60 mL/min (>60); GLUCOSE,RANDOM 94 mg/dL (70-110); POTASSIUM 3.9 mmol/L (3.5-5.1); SODIUM SERUM 138 mmol/L (136-145); UREA NITROGEN, BLOOD 15 mg/dL (7-18)
[2019-07-17 07:37] VITALS: BP 118/58
[2019-07-17] MEDS: SENNA/DOCUSATE SODIUM 8.6-50 MG TABLET PO SCH ×2 (08:09→20:50)
[2019-07-17] MEDS: LACTOBACILLUS ACIDOPHILUS/BULGARICUS TABLET PO SCH ×2 (08:09→20:49)
[2019-07-17] MEDS: AmLODIPine BESYLATE 5 MG TABLET PO SCH (08:10)
[2019-07-17] MEDS: APIXABAN 2.5 MG TABLET PO SCH ×2 (08:10→20:50)
[2019-07-17] MEDS: LOSARTAN POTASSIUM 50 MG TABLET PO SCH (08:10)
[2019-07-17] MEDS: HEPARIN SODIUM,PORCINE 100 UNITS/ML 5 ML VIAL IVP SCH ×2 (08:42→20:49)
[2019-07-17 16:55] VITALS: BP 118/67
[2019-07-17] MEDS: CHLORHEXIDINE GLUCONATE 4% 118 ML TOPICAL LIQUID TP SCH (20:50)
[2019-07-17 23:43] VITALS: BP 98/59
[2019-07-18] MEDS: GABAPENTIN 100 MG CAPSULE PO SCH ×3 (06:19→21:48)
[2019-07-18] MEDS: PANTOPRAZOLE SODIUM 40 MG DR TABLET PO SCH (06:19)
[2019-07-18] MEDS: 0.9% SODIUM CHLORIDE 10 ML SYRINGE IVP SCH ×2 (06:20→18:58)
[2019-07-18] MEDS: VANCOMYCIN HCL 1.25 GM in DEXTROSE 5%-WATER 250 ML IV SCH ×2 (06:25→18:58)
[2019-07-18] MEDS ORDERED: SODIUM CHLORIDE 0.9% 100 ML ONE ×2 (06:32→18:40)
[2019-07-18 06:59] LABS: ANION GAP 8 mmol/L (8-16); CALCIUM, TOTAL 9.2 mg/dL (8.8-10.5); CARBON DIOXIDE 29 mmol/L (22-29); CHLORIDE 103 mmol/L (98-107); CREATININE 0.74 mg/dL (0.60-1.30); GLOMERULAR FILTR. RATE CALC > 60 mL/min (>60); GLUCOSE,RANDOM 98 mg/dL (70-110); SODIUM SERUM 140 mmol/L (136-145); UREA NITROGEN, BLOOD 15 mg/dL (7-18); VANCOMYCIN,RANDOM 18.2 mcg/mL (25.0-50.0)
[2019-07-18 07:51] VITALS: BP 118/64
[2019-07-18] MEDS: SENNA/DOCUSATE SODIUM 8.6-50 MG TABLET PO SCH ×2 (08:16→21:05)
[2019-07-18] MEDS: LACTOBACILLUS ACIDOPHILUS/BULGARICUS TABLET PO SCH ×2 (08:16→21:05)
[2019-07-18] MEDS: AmLODIPine BESYLATE 5 MG TABLET PO SCH (08:16)
[2019-07-18] MEDS: APIXABAN 2.5 MG TABLET PO SCH ×2 (08:16→21:05)
[2019-07-18] MEDS: LOSARTAN POTASSIUM 50 MG TABLET PO SCH (08:16)
[2019-07-18] MEDS: HEPARIN SODIUM,PORCINE 100 UNITS/ML 5 ML VIAL IVP SCH ×2 (09:12→21:16)
[2019-07-18] MEDS: HYDROCODONE/ACETAMINOPHEN 10-325 MG TABLET PO PRN ×2 (13:19→21:48)
[2019-07-18 15:51] VITALS: BP 107/69
[2019-07-18 21:00] VITALS: BP 102/54
[2019-07-18] MEDS: CHLORHEXIDINE GLUCONATE 4% 118 ML TOPICAL LIQUID TP SCH (21:48)
[2019-07-18 23:30] VITALS: BP 105/46
[2019-07-19] MEDS ORDERED: APIX2.5T PO ×2 (03:36→04:33)
[2019-07-19] MEDS ORDERED: LOSA50TA64 PO (04:33)
[2019-07-19] MEDS ORDERED: SENN-144 PO (04:33)
[2019-07-19] MEDS ORDERED: PANT40TA25 PO (04:33)
[2019-07-19] MEDS ORDERED: ACID1TAB8 PO (04:33)
[2019-07-19] MEDS ORDERED: AMLO5TAB9 PO (04:33)
[2019-07-19 06:10] VITALS: BP 114/61
[2019-07-19] MEDS: PANTOPRAZOLE SODIUM 40 MG DR TABLET PO SCH (06:25)
[2019-07-19] MEDS: 0.9% SODIUM CHLORIDE 10 ML SYRINGE IVP SCH ×2 (06:25→18:50)
[2019-07-19] MEDS: GABAPENTIN 100 MG CAPSULE PO SCH ×3 (06:26→22:10)
[2019-07-19] MEDS: VANCOMYCIN HCL 1.25 GM in DEXTROSE 5%-WATER 250 ML IV SCH ×2 (06:27→18:50)
[2019-07-19 07:33] VITALS: BP 111/41
[2019-07-19 08:13] LABS: ANION GAP 8 mmol/L (8-16); CALCIUM, TOTAL 9.1 mg/dL (8.8-10.5); CARBON DIOXIDE 27 mmol/L (22-29); CHLORIDE 103 mmol/L (98-107); CREATININE 0.68 mg/dL (0.60-1.30); GLOMERULAR FILTR. RATE CALC > 60 mL/min (>60); GLUCOSE,RANDOM 87 mg/dL (70-110); POTASSIUM 3.8 mmol/L (3.5-5.1); SODIUM SERUM 138 mmol/L (136-145); UREA NITROGEN, BLOOD 14 mg/dL (7-18)
[2019-07-19] MEDS: LACTOBACILLUS ACIDOPHILUS/BULGARICUS TABLET PO SCH ×2 (08:36→21:07)
[2019-07-19] MEDS: APIXABAN 2.5 MG TABLET PO SCH ×2 (08:37→21:07)
[2019-07-19] MEDS: SENNA/DOCUSATE SODIUM 8.6-50 MG TABLET PO SCH ×2 (08:37→21:07)
[2019-07-19] MEDS: LOSARTAN POTASSIUM 50 MG TABLET PO SCH (08:37)
[2019-07-19] MEDS: AmLODIPine BESYLATE 5 MG TABLET PO SCH (08:37)
[2019-07-19] MEDS: HEPARIN SODIUM,PORCINE 100 UNITS/ML 5 ML VIAL IVP SCH ×2 (09:00→21:08)
[2019-07-19] MEDS: HYDROCODONE/ACETAMINOPHEN 10-325 MG TABLET PO PRN ×2 (10:03→22:10)
[2019-07-19] MEDS: ACETAMINOPHEN 325 MG TABLET PO PRN (13:36)
[2019-07-19 15:23] VITALS: BP 91/57
[2019-07-19] MEDS ORDERED: SODIUM CHLORIDE 0.9% 100 ML ONE (18:35)
[2019-07-19 21:05] VITALS: BP 132/70
[2019-07-19] MEDS: CHLORHEXIDINE GLUCONATE 4% 118 ML TOPICAL LIQUID TP SCH (21:08)
[2019-07-19 23:08] VITALS: BP 104/58
[2019-07-20 05:57] LABS: EOSINOPHILS % (AUTO) 5.7 % (1.0-6.0); HEMOGLOBIN 12.3 g/dL (12.0-16.0); LYMPHOCYTES # (AUTO) 1.2 K/uL (1.0-4.8); LYMPHOCYTES % (AUTO) 30.6 % (22.0-44.0); MEAN CORPUSCULAR HGB CONC 32.3 G/dL (31.0-37.0); MEAN CORPUSCULAR VOLUME 90 fL (80-100); MONOCYTES # (AUTO) 0.4 K/uL (0.1-1.0); MONOCYTES % (AUTO) 8.7 % (2.0-9.0); NEUTROPHILS # (AUTO) 2.2 K/uL (1.8-7.7); PLATELET COUNT (AUTO) 189 K/uL (150-450); RED BLOOD CELL COUNT(AUTO) 4.23 MIL/uL (4.00-5.20); RED CELL DISTRIBUTION WIDTH 13.5 % (11.5-14.5)
[2019-07-20] MEDS: VANCOMYCIN HCL 1.25 GM in DEXTROSE 5%-WATER 250 ML IV SCH ×2 (05:58→18:58)
[2019-07-20] MEDS: GABAPENTIN 100 MG CAPSULE PO SCH ×3 (05:59→21:36)
[2019-07-20] MEDS: PANTOPRAZOLE SODIUM 40 MG DR TABLET PO SCH (05:59)
[2019-07-20] MEDS: 0.9% SODIUM CHLORIDE 10 ML SYRINGE IVP SCH ×2 (05:59→18:57)
[2019-07-20 08:02] VITALS: BP 137/81
[2019-07-20] MEDS: HEPARIN SODIUM,PORCINE 100 UNITS/ML 5 ML VIAL IVP SCH ×2 (08:36→21:34)
[2019-07-20] MEDS: LACTOBACILLUS ACIDOPHILUS/BULGARICUS TABLET PO SCH ×2 (08:39→21:35)
[2019-07-20] MEDS: SENNA/DOCUSATE SODIUM 8.6-50 MG TABLET PO SCH ×2 (08:40→21:34)
[2019-07-20] MEDS: APIXABAN 2.5 MG TABLET PO SCH ×2 (08:40→21:35)
[2019-07-20] MEDS: LOSARTAN POTASSIUM 50 MG TABLET PO SCH (08:40)
[2019-07-20] MEDS: AmLODIPine BESYLATE 5 MG TABLET PO SCH (08:40)
[2019-07-20] MEDS: HYDROCODONE/ACETAMINOPHEN 10-325 MG TABLET PO PRN ×3 (09:16→23:32)
[2019-07-20] MEDS: ACETAMINOPHEN 325 MG TABLET PO PRN (14:16)
[2019-07-20 17:09] VITALS: BP 113/62
[2019-07-20] MEDS ORDERED: SODIUM CHLORIDE 0.9% 100 ML ONE (18:42)
[2019-07-20] MEDS: CHLORHEXIDINE GLUCONATE 4% 118 ML TOPICAL LIQUID TP SCH (21:36)
[2019-07-20 23:31] VITALS: BP 102/56
[2019-07-21] MEDS ORDERED: SODIUM CHLORIDE 0.9% 100 ML ONE (03:22)
[2019-07-21] MEDS: GABAPENTIN 100 MG CAPSULE PO SCH ×3 (06:00→21:19)
[2019-07-21] MEDS: PANTOPRAZOLE SODIUM 40 MG DR TABLET PO SCH (06:01)
[2019-07-21] MEDS: VANCOMYCIN HCL 1.25 GM in DEXTROSE 5%-WATER 250 ML IV SCH ×2 (06:17→18:57)
[2019-07-21] MEDS: 0.9% SODIUM CHLORIDE 10 ML SYRINGE IVP SCH ×2 (06:17→18:57)
[2019-07-21 07:15] VITALS: BP 95/51
[2019-07-21 07:24] LABS: ANION GAP 7 mmol/L (8-16); CALCIUM, TOTAL 8.9 mg/dL (8.8-10.5); CARBON DIOXIDE 28 mmol/L (22-29); CHLORIDE 103 mmol/L (98-107); CREATININE 0.66 mg/dL (0.60-1.30); GLOMERULAR FILTR. RATE CALC > 60 mL/min (>60); GLUCOSE,RANDOM 91 mg/dL (70-110); POTASSIUM 3.9 mmol/L (3.5-5.1); SODIUM SERUM 138 mmol/L (136-145); UREA NITROGEN, BLOOD 13 mg/dL (7-18)
[2019-07-21] MEDS: LACTOBACILLUS ACIDOPHILUS/BULGARICUS TABLET PO SCH ×2 (08:40→21:19)
[2019-07-21] MEDS: APIXABAN 2.5 MG TABLET PO SCH ×2 (08:41→21:19)
[2019-07-21] MEDS: AmLODIPine BESYLATE 5 MG TABLET PO SCH (08:41)
[2019-07-21] MEDS: SENNA/DOCUSATE SODIUM 8.6-50 MG TABLET PO SCH ×2 (08:41→21:19)
[2019-07-21] MEDS: LOSARTAN POTASSIUM 50 MG TABLET PO SCH (08:41)
[2019-07-21 08:44] VITALS: BP 112/46
[2019-07-21] MEDS: HEPARIN SODIUM,PORCINE 100 UNITS/ML 5 ML VIAL IVP SCH ×2 (08:44→21:19)
[2019-07-21] MEDS: HYDROCODONE/ACETAMINOPHEN 10-325 MG TABLET PO PRN ×2 (11:33→18:12)
[2019-07-21] MEDS: ACETAMINOPHEN 325 MG TABLET PO PRN ×2 (14:43→22:18)
[2019-07-21 15:40] VITALS: BP 93/47
[2019-07-21] MEDS: COLD CREAM, SKIN EMOLLIENT 170 GM JAR TP SCH (21:19)
[2019-07-21] MEDS: CHLORHEXIDINE GLUCONATE 4% 118 ML TOPICAL LIQUID TP SCH (21:42)
[2019-07-21 23:18] VITALS: BP 94/59
[2019-07-22 06:00] VITALS: BP 106/60
[2019-07-22] MEDS: PANTOPRAZOLE SODIUM 40 MG DR TABLET PO SCH (06:40)
[2019-07-22] MEDS: GABAPENTIN 100 MG CAPSULE PO SCH ×3 (06:40→21:15)
[2019-07-22] MEDS: VANCOMYCIN HCL 1.25 GM in DEXTROSE 5%-WATER 250 ML IV SCH ×2 (06:41→19:20)
[2019-07-22] MEDS: 0.9% SODIUM CHLORIDE 10 ML SYRINGE IVP SCH ×2 (06:41→19:20)
[2019-07-22 07:41] VITALS: BP 101/67
[2019-07-22] MEDS: LACTOBACILLUS ACIDOPHILUS/BULGARICUS TABLET PO SCH ×2 (08:29→21:15)
[2019-07-22] MEDS: SENNA/DOCUSATE SODIUM 8.6-50 MG TABLET PO SCH ×2 (08:29→21:15)
[2019-07-22] MEDS: APIXABAN 2.5 MG TABLET PO SCH ×2 (08:29→21:15)
[2019-07-22] MEDS: COLD CREAM, SKIN EMOLLIENT 170 GM JAR TP SCH ×2 (08:30→21:17)
[2019-07-22] MEDS: AmLODIPine BESYLATE 5 MG TABLET PO SCH (08:35)
[2019-07-22] MEDS: LOSARTAN POTASSIUM 50 MG TABLET PO SCH (08:35)
[2019-07-22] MEDS: HEPARIN SODIUM,PORCINE 100 UNITS/ML 5 ML VIAL IVP SCH ×2 (09:09→21:16)
[2019-07-22] MEDS: HYDROCODONE/ACETAMINOPHEN 10-325 MG TABLET PO PRN (09:26)
[2019-07-22 15:35] VITALS: BP 130/64
[2019-07-22] MEDS: HYDROCODONE/ACETAMINOPHEN 5-325 MG TABLET PO PRN ×2 (17:28→21:16)
[2019-07-22] MEDS: CHLORHEXIDINE GLUCONATE 4% 118 ML TOPICAL LIQUID TP SCH (21:21)
[2019-07-23 06:19] LABS: ANION GAP 7 mmol/L (8-16); CALCIUM, TOTAL 8.8 mg/dL (8.8-10.5); CARBON DIOXIDE 28 mmol/L (22-29); CHLORIDE 105 mmol/L (98-107); CREATININE 0.71 mg/dL (0.60-1.30); GLOMERULAR FILTR. RATE CALC > 60 mL/min (>60); GLUCOSE,RANDOM 96 mg/dL (70-110); POTASSIUM 3.9 mmol/L (3.5-5.1); SODIUM SERUM 140 mmol/L (136-145); UREA NITROGEN, BLOOD 14 mg/dL (7-18)
[2019-07-23] MEDS: PANTOPRAZOLE SODIUM 40 MG DR TABLET PO SCH (06:35)
[2019-07-23] MEDS: GABAPENTIN 100 MG CAPSULE PO SCH ×3 (06:35→20:57)
[2019-07-23] MEDS: VANCOMYCIN HCL 1.25 GM in DEXTROSE 5%-WATER 250 ML IV SCH ×2 (06:36→19:11)
[2019-07-23] MEDS: 0.9% SODIUM CHLORIDE 10 ML SYRINGE IVP SCH ×2 (06:37→19:11)
[2019-07-23 07:24] VITALS: BP 117/61
[2019-07-23] MEDS: LACTOBACILLUS ACIDOPHILUS/BULGARICUS TABLET PO SCH ×2 (07:51→20:57)
[2019-07-23] MEDS: LOSARTAN POTASSIUM 50 MG TABLET PO SCH (07:51)
[2019-07-23] MEDS: SENNA/DOCUSATE SODIUM 8.6-50 MG TABLET PO SCH ×2 (07:51→20:57)
[2019-07-23] MEDS: HYDROCODONE/ACETAMINOPHEN 5-325 MG TABLET PO PRN ×3 (07:52→20:58)
[2019-07-23] MEDS: COLD CREAM, SKIN EMOLLIENT 170 GM JAR TP SCH ×2 (07:52→21:01)
[2019-07-23] MEDS: APIXABAN 2.5 MG TABLET PO SCH ×2 (07:52→20:58)
[2019-07-23] MEDS: HEPARIN SODIUM,PORCINE 100 UNITS/ML 5 ML VIAL IVP SCH ×2 (09:14→20:58)
[2019-07-23 16:00] VITALS: BP 107/64
[2019-07-23] MEDS ORDERED: SODIUM CHLORIDE 0.9% 250 ML IV ONE (19:03)
[2019-07-23] MEDS: CHLORHEXIDINE GLUCONATE 4% 118 ML TOPICAL LIQUID TP SCH (20:58)
[2019-07-24] VITALS: BP 111/66
[2019-07-24] MEDS: ACETAMINOPHEN 325 MG TABLET PO PRN (06:02)
[2019-07-24] MEDS ORDERED: SODIUM CHLORIDE 0.9% 100 ML ONE (06:31)
[2019-07-24] MEDS: VANCOMYCIN HCL 1.25 GM in DEXTROSE 5%-WATER 250 ML IV SCH ×2 (06:42→19:06)
[2019-07-24] MEDS: PANTOPRAZOLE SODIUM 40 MG DR TABLET PO SCH (06:43)
[2019-07-24] MEDS: GABAPENTIN 100 MG CAPSULE PO SCH ×3 (06:43→21:24)
[2019-07-24] MEDS: HEPARIN SODIUM,PORCINE 100 UNITS/ML 5 ML VIAL IVP SCH ×2 (08:09→21:27)
[2019-07-24] MEDS: LACTOBACILLUS ACIDOPHILUS/BULGARICUS TABLET PO SCH ×2 (08:09→21:24)
[2019-07-24] MEDS: LOSARTAN POTASSIUM 50 MG TABLET PO SCH (08:09)
[2019-07-24] MEDS: APIXABAN 2.5 MG TABLET PO SCH ×2 (08:10→21:24)
[2019-07-24] MEDS: SENNA/DOCUSATE SODIUM 8.6-50 MG TABLET PO SCH ×2 (08:10→21:24)
[2019-07-24] MEDS: 0.9% SODIUM CHLORIDE 10 ML SYRINGE IVP SCH ×2 (08:10→19:05)
[2019-07-24] MEDS: COLD CREAM, SKIN EMOLLIENT 170 GM JAR TP SCH ×2 (08:13→21:27)
[2019-07-24 08:19] VITALS: BP 102/57
[2019-07-24] MEDS: HYDROCODONE/ACETAMINOPHEN 5-325 MG TABLET PO PRN ×2 (09:03→21:24)
[2019-07-24] MEDS ORDERED: HYDROCORTISONE 25 MG RECTAL SUPPOSITORY PR PRN (14:45)
[2019-07-24 16:12] VITALS: BP 111/51
[2019-07-24] MEDS: CHLORHEXIDINE GLUCONATE 4% 118 ML TOPICAL LIQUID TP SCH (21:27)
[2019-07-24 23:45] VITALS: BP 112/71
[2019-07-25] MEDS: PANTOPRAZOLE SODIUM 40 MG DR TABLET PO SCH (06:15)
[2019-07-25] MEDS: GABAPENTIN 100 MG CAPSULE PO SCH ×3 (06:15→21:48)
[2019-07-25] MEDS: VANCOMYCIN HCL 1.25 GM in DEXTROSE 5%-WATER 250 ML IV SCH ×2 (06:16→18:57)
[2019-07-25] MEDS: 0.9% SODIUM CHLORIDE 10 ML SYRINGE IVP SCH ×2 (06:17→19:09)
[2019-07-25 06:31] LABS: ANION GAP 7 mmol/L (8-16); CALCIUM, TOTAL 9.1 mg/dL (8.8-10.5); CARBON DIOXIDE 29 mmol/L (22-29); CHLORIDE 105 mmol/L (98-107); CREATININE 0.66 mg/dL (0.60-1.30); GLOMERULAR FILTR. RATE CALC > 60 mL/min (>60); GLUCOSE,RANDOM 96 mg/dL (70-110); POTASSIUM 4.1 mmol/L (3.5-5.1); SODIUM SERUM 141 mmol/L (136-145); UREA NITROGEN, BLOOD 14 mg/dL (7-18)
[2019-07-25 08:33] VITALS: BP 146/84
[2019-07-25] MEDS: HYDROCODONE/ACETAMINOPHEN 5-325 MG TABLET PO PRN (08:42)
[2019-07-25] MEDS: LACTOBACILLUS ACIDOPHILUS/BULGARICUS TABLET PO SCH ×2 (08:42→21:49)
[2019-07-25] MEDS: HEPARIN SODIUM,PORCINE 100 UNITS/ML 5 ML VIAL IVP SCH ×2 (08:43→21:48)
[2019-07-25] MEDS: SENNA/DOCUSATE SODIUM 8.6-50 MG TABLET PO SCH ×2 (08:43→21:49)
[2019-07-25] MEDS: APIXABAN 2.5 MG TABLET PO SCH ×2 (08:43→21:48)
[2019-07-25] MEDS: LOSARTAN POTASSIUM 50 MG TABLET PO SCH (08:43)
[2019-07-25] MEDS: COLD CREAM, SKIN EMOLLIENT 170 GM JAR TP SCH ×2 (08:43→21:49)
[2019-07-25] MEDS: ACETAMINOPHEN 325 MG TABLET PO PRN (16:24)
[2019-07-25 16:49] VITALS: BP 124/83
[2019-07-25] MEDS: CHLORHEXIDINE GLUCONATE 4% 118 ML TOPICAL LIQUID TP SCH (21:49)
[2019-07-26 05:31] VITALS: BP 116/45
[2019-07-26] MEDS: 0.9% SODIUM CHLORIDE 10 ML SYRINGE IVP SCH ×2 (06:06→19:02)
[2019-07-26] MEDS: GABAPENTIN 100 MG CAPSULE PO SCH ×3 (06:20→22:37)
[2019-07-26] MEDS: VANCOMYCIN HCL 1.25 GM in DEXTROSE 5%-WATER 250 ML IV SCH ×2 (06:21→19:02)
[2019-07-26] MEDS: PANTOPRAZOLE SODIUM 40 MG DR TABLET PO SCH (06:21)
[2019-07-26] MEDS: ACETAMINOPHEN 325 MG TABLET PO PRN (06:29)
[2019-07-26 07:29] VITALS: BP 111/49
[2019-07-26] MEDS: HEPARIN SODIUM,PORCINE 100 UNITS/ML 5 ML VIAL IVP SCH ×2 (08:56→21:25)
[2019-07-26 09:13] VITALS: BP 114/57
[2019-07-26] MEDS: LOSARTAN POTASSIUM 50 MG TABLET PO SCH (09:15)
[2019-07-26] MEDS: APIXABAN 2.5 MG TABLET PO SCH ×2 (09:15→21:26)
[2019-07-26] MEDS: SENNA/DOCUSATE SODIUM 8.6-50 MG TABLET PO SCH ×2 (09:15→21:26)
[2019-07-26] MEDS: LACTOBACILLUS ACIDOPHILUS/BULGARICUS TABLET PO SCH ×2 (09:15→21:26)
[2019-07-26] MEDS: COLD CREAM, SKIN EMOLLIENT 170 GM JAR TP SCH ×2 (09:16→21:27)
[2019-07-26] MEDS: HYDROCODONE/ACETAMINOPHEN 5-325 MG TABLET PO PRN (14:55)
[2019-07-26 15:55] VITALS: BP 99/44
[2019-07-26 16:38] VITALS: BP 100/50
[2019-07-26] MEDS: CHLORHEXIDINE GLUCONATE 4% 118 ML TOPICAL LIQUID TP SCH (21:26)
[2019-07-27] VITALS: BP 109/51
[2019-07-27] MEDS: 0.9% SODIUM CHLORIDE 10 ML SYRINGE IVP SCH ×2 (06:12→19:28)
[2019-07-27] MEDS: PANTOPRAZOLE SODIUM 40 MG DR TABLET PO SCH (06:24)
[2019-07-27] MEDS: GABAPENTIN 100 MG CAPSULE PO SCH ×3 (06:24→21:46)
[2019-07-27 06:27] LABS: EOSINOPHILS % (AUTO) 4.5 % (1.0-6.0); HEMOGLOBIN 12.8 g/dL (12.0-16.0); LYMPHOCYTES # (AUTO) 1.5 K/uL (1.0-4.8); LYMPHOCYTES % (AUTO) 30.5 % (22.0-44.0); MEAN CORPUSCULAR HEMOGLOBIN 29.3 pg (26.0-34.0); MEAN CORPUSCULAR HGB CONC 32.9 G/dL (31.0-37.0); MEAN CORPUSCULAR VOLUME 89 fL (80-100); MONOCYTES # (AUTO) 0.4 K/uL (0.1-1.0); MONOCYTES % (AUTO) 7.3 % (2.0-9.0); NEUTROPHILS # (AUTO) 2.9 K/uL (1.8-7.7); NEUTROPHILS % (AUTO) 56.7 % (40.0-70.0); PLATELET COUNT (AUTO) 227 K/uL (150-450); RED BLOOD CELL COUNT(AUTO) 4.38 MIL/uL (4.00-5.20); RED CELL DISTRIBUTION WIDTH 13.4 % (11.5-14.5)
[2019-07-27] MEDS: VANCOMYCIN HCL 1.25 GM in DEXTROSE 5%-WATER 250 ML IV SCH ×2 (06:29→19:28)
[2019-07-27 06:48] LABS: ANION GAP 10 mmol/L (8-16); CALCIUM, TOTAL 9.1 mg/dL (8.8-10.5); CARBON DIOXIDE 26 mmol/L (22-29); CHLORIDE 105 mmol/L (98-107); CREATININE 0.65 mg/dL (0.60-1.30); GLOMERULAR FILTR. RATE CALC > 60 mL/min (>60); GLUCOSE,RANDOM 94 mg/dL (70-110); SODIUM SERUM 141 mmol/L (136-145); UREA NITROGEN, BLOOD 13 mg/dL (7-18); VANCOMYCIN,RANDOM 15.6 mcg/mL (25.0-50.0)
[2019-07-27] MEDS: HEPARIN SODIUM,PORCINE 100 UNITS/ML 5 ML VIAL IVP SCH ×2 (08:59→21:46)
[2019-07-27] MEDS: SENNA/DOCUSATE SODIUM 8.6-50 MG TABLET PO SCH ×2 (08:59→21:07)
[2019-07-27] MEDS: LOSARTAN POTASSIUM 50 MG TABLET PO SCH (08:59)
[2019-07-27] MEDS: LACTOBACILLUS ACIDOPHILUS/BULGARICUS TABLET PO SCH ×2 (08:59→21:06)
[2019-07-27] MEDS: APIXABAN 2.5 MG TABLET PO SCH ×2 (08:59→21:07)
[2019-07-27] MEDS: COLD CREAM, SKIN EMOLLIENT 170 GM JAR TP SCH ×2 (09:02→21:07)
[2019-07-27 09:45] VITALS: BP 118/66
[2019-07-27] MEDS: ACETAMINOPHEN 325 MG TABLET PO PRN ×2 (09:45→21:46)
[2019-07-27 09:59] LABS: C-REACTIVE PROTEIN QUANT 0.26 mg/dL (0.00-0.30)
[2019-07-27 10:56] LABS: ERYTHROCYTE SEDIMENTATION RATE 20 MM/HR (0-20)
[2019-07-27 15:43] VITALS: BP 126/75
[2019-07-27] MEDS: HYDROCODONE/ACETAMINOPHEN 5-325 MG TABLET PO PRN (15:51)
[2019-07-27] MEDS ORDERED: SODIUM CHLORIDE 0.9% 100 ML ONE (18:56)
[2019-07-27] MEDS: CHLORHEXIDINE GLUCONATE 4% 118 ML TOPICAL LIQUID TP SCH (21:07)
[2019-07-28] VITALS: BP 102/55
[2019-07-28] MEDS: GABAPENTIN 100 MG CAPSULE PO SCH ×3 (06:14→21:37)
[2019-07-28] MEDS: PANTOPRAZOLE SODIUM 40 MG DR TABLET PO SCH (06:14)
[2019-07-28] MEDS: 0.9% SODIUM CHLORIDE 10 ML SYRINGE IVP SCH ×2 (06:14→19:38)
[2019-07-28] MEDS: VANCOMYCIN HCL 1.25 GM in DEXTROSE 5%-WATER 250 ML IV SCH ×2 (06:15→19:38)
[2019-07-28 07:00] VITALS: BP 117/64
[2019-07-28] MEDS: LACTOBACILLUS ACIDOPHILUS/BULGARICUS TABLET PO SCH ×2 (08:40→21:37)
[2019-07-28] MEDS: SENNA/DOCUSATE SODIUM 8.6-50 MG TABLET PO SCH ×2 (08:41→21:37)
[2019-07-28] MEDS: COLD CREAM, SKIN EMOLLIENT 170 GM JAR TP SCH ×2 (08:41→21:37)
[2019-07-28] MEDS: HEPARIN SODIUM,PORCINE 100 UNITS/ML 5 ML VIAL IVP SCH ×2 (08:41→21:58)
[2019-07-28] MEDS: LOSARTAN POTASSIUM 50 MG TABLET PO SCH (08:41)
[2019-07-28] MEDS: APIXABAN 2.5 MG TABLET PO SCH (08:41)
[2019-07-28] MEDS: HYDROCODONE/ACETAMINOPHEN 5-325 MG TABLET PO PRN ×2 (09:59→18:00)
[2019-07-28 15:25] VITALS: BP 129/64
[2019-07-28] MEDS ORDERED: SODIUM CHLORIDE 0.9% 100 ML ONE (19:21)
[2019-07-28] MEDS: CHLORHEXIDINE GLUCONATE 4% 118 ML TOPICAL LIQUID TP SCH (21:41)
[2019-07-29] VITALS: BP 114/64
[2019-07-29] MEDS: HYDROCODONE/ACETAMINOPHEN 5-325 MG TABLET PO PRN ×2 (03:06→18:30)
[2019-07-29] MEDS: GABAPENTIN 100 MG CAPSULE PO SCH ×3 (06:14→21:26)
[2019-07-29] MEDS: PANTOPRAZOLE SODIUM 40 MG DR TABLET PO SCH (06:14)
[2019-07-29] MEDS: VANCOMYCIN HCL 1.25 GM in DEXTROSE 5%-WATER 250 ML IV SCH ×2 (06:16→18:38)
[2019-07-29] MEDS: 0.9% SODIUM CHLORIDE 10 ML SYRINGE IVP SCH ×2 (06:16→18:38)
[2019-07-29 07:39] VITALS: BP 108/74
[2019-07-29] MEDS: SENNA/DOCUSATE SODIUM 8.6-50 MG TABLET PO SCH ×2 (08:28→21:26)
[2019-07-29] MEDS: LOSARTAN POTASSIUM 50 MG TABLET PO SCH (08:28)
[2019-07-29] MEDS: LACTOBACILLUS ACIDOPHILUS/BULGARICUS TABLET PO SCH ×2 (08:28→21:26)
[2019-07-29] MEDS: COLD CREAM, SKIN EMOLLIENT 170 GM JAR TP SCH ×2 (08:28→21:26)
[2019-07-29] MEDS: HEPARIN SODIUM,PORCINE 100 UNITS/ML 5 ML VIAL IVP SCH ×2 (08:57→21:26)
[2019-07-29] MEDS: CHLORHEXIDINE GLUCONATE 4% 118 ML TOPICAL LIQUID TP SCH (21:25)
[2019-07-29 23:35] VITALS: BP 110/63
[2019-07-30] MEDS: HYDROCODONE/ACETAMINOPHEN 5-325 MG TABLET PO PRN (02:26)
[2019-07-30 04:29] LABS: ANION GAP 8 mmol/L (8-16); CALCIUM, TOTAL 8.7 mg/dL (8.8-10.5); CARBON DIOXIDE 28 mmol/L (22-29); CHLORIDE 104 mmol/L (98-107); CREATININE 0.72 mg/dL (0.60-1.30); GLOMERULAR FILTR. RATE CALC > 60 mL/min (>60); GLUCOSE,RANDOM 103 mg/dL (70-110); POTASSIUM 3.9 mmol/L (3.5-5.1); SODIUM SERUM 140 mmol/L (136-145); UREA NITROGEN, BLOOD 14 mg/dL (7-18); VANCOMYCIN,RANDOM 19.3 mcg/mL (25.0-50.0)
[2019-07-30] MEDS: GABAPENTIN 100 MG CAPSULE PO SCH ×3 (05:56→21:41)
[2019-07-30] MEDS: 0.9% SODIUM CHLORIDE 10 ML SYRINGE IVP SCH ×2 (05:56→19:29)
[2019-07-30] MEDS: VANCOMYCIN HCL 1.25 GM in DEXTROSE 5%-WATER 250 ML IV SCH ×2 (05:56→19:29)
[2019-07-30] MEDS: PANTOPRAZOLE SODIUM 40 MG DR TABLET PO SCH (05:56)
[2019-07-30] MEDS: HEPARIN SODIUM,PORCINE 100 UNITS/ML 5 ML VIAL IVP SCH ×2 (08:00→21:38)
[2019-07-30 09:36] VITALS: BP 134/73
[2019-07-30] MEDS: LOSARTAN POTASSIUM 50 MG TABLET PO SCH (10:29)
[2019-07-30] MEDS: SENNA/DOCUSATE SODIUM 8.6-50 MG TABLET PO SCH ×2 (10:29→21:38)
[2019-07-30] MEDS: COLD CREAM, SKIN EMOLLIENT 170 GM JAR TP SCH ×2 (10:29→21:39)
[2019-07-30] MEDS: LACTOBACILLUS ACIDOPHILUS/BULGARICUS TABLET PO SCH ×2 (10:29→21:38)
[2019-07-30] MEDS: ACETAMINOPHEN 325 MG TABLET PO PRN (10:46)
[2019-07-30 17:32] VITALS: BP 114/70
[2019-07-30] MEDS: HYDROCODONE/ACETAMINOPHEN 10-325 MG TABLET PO PRN (21:38)
[2019-07-30] MEDS: CHLORHEXIDINE GLUCONATE 4% 118 ML TOPICAL LIQUID TP SCH (21:38)
[2019-07-30 23:55] VITALS: BP 114/66
[2019-07-31] MEDS: GABAPENTIN 100 MG CAPSULE PO SCH ×3 (06:22→21:35)
[2019-07-31] MEDS: PANTOPRAZOLE SODIUM 40 MG DR TABLET PO SCH (06:22)
[2019-07-31] MEDS: 0.9% SODIUM CHLORIDE 10 ML SYRINGE IVP SCH ×2 (06:23→18:41)
[2019-07-31] MEDS: VANCOMYCIN HCL 1.25 GM in DEXTROSE 5%-WATER 250 ML IV SCH ×2 (06:35→18:41)
[2019-07-31 08:30] VITALS: BP 120/49
[2019-07-31] MEDS: LACTOBACILLUS ACIDOPHILUS/BULGARICUS TABLET PO SCH ×2 (09:04→21:34)
[2019-07-31] MEDS: HEPARIN SODIUM,PORCINE 100 UNITS/ML 5 ML VIAL IVP SCH ×2 (09:05→21:34)
[2019-07-31] MEDS: SENNA/DOCUSATE SODIUM 8.6-50 MG TABLET PO SCH ×2 (09:05→21:34)
[2019-07-31] MEDS: LOSARTAN POTASSIUM 50 MG TABLET PO SCH (09:08)
[2019-07-31] MEDS: COLD CREAM, SKIN EMOLLIENT 170 GM JAR TP SCH ×2 (09:25→21:00)
[2019-07-31] MEDS: ACETAMINOPHEN 325 MG TABLET PO PRN (12:26)
[2019-07-31 13:20] LABS: ANION GAP 6 mmol/L (8-16); CALCIUM, TOTAL 8.9 mg/dL (8.8-10.5); CARBON DIOXIDE 29 mmol/L (22-29); CHLORIDE 103 mmol/L (98-107); CREATININE 0.81 mg/dL (0.60-1.30); GLOMERULAR FILTR. RATE CALC > 60 mL/min (>60); GLUCOSE,RANDOM 124 mg/dL (70-110); SODIUM SERUM 138 mmol/L (136-145); UREA NITROGEN, BLOOD 15 mg/dL (7-18)
[2019-07-31 16:40] VITALS: BP 98/65
[2019-07-31] MEDS: CHLORHEXIDINE GLUCONATE 4% 118 ML TOPICAL LIQUID TP SCH (21:34)
[2019-07-31] MEDS: HYDROCODONE/ACETAMINOPHEN 5-325 MG TABLET PO PRN (21:36)
[2019-07-31 23:00] VITALS: BP 140/71
[2019-08-01] MEDS ORDERED: HYDR-4061 PO ×2 (00:44→00:51)
[2019-08-01] MEDS: GABAPENTIN 100 MG CAPSULE PO SCH (06:41)
[2019-08-01] MEDS: PANTOPRAZOLE SODIUM 40 MG DR TABLET PO SCH (06:41)
[2019-08-01] MEDS: 0.9% SODIUM CHLORIDE 10 ML SYRINGE IVP SCH (06:42)
[2019-08-01] MEDS: VANCOMYCIN HCL 1.25 GM in DEXTROSE 5%-WATER 250 ML IV SCH (06:42)
[2019-08-01] MEDS: COLD CREAM, SKIN EMOLLIENT 170 GM JAR TP SCH (09:00)
[2019-08-01] MEDS: HEPARIN SODIUM,PORCINE 100 UNITS/ML 5 ML VIAL IVP SCH (09:28)
[2019-08-01] MEDS: LACTOBACILLUS ACIDOPHILUS/BULGARICUS TABLET PO SCH (09:29)
[2019-08-01] MEDS: SENNA/DOCUSATE SODIUM 8.6-50 MG TABLET PO SCH (09:29)
[2019-08-01] MEDS: LOSARTAN POTASSIUM 50 MG TABLET PO SCH (09:29)
[2019-08-01] MEDS: HYDROCODONE/ACETAMINOPHEN 5-325 MG TABLET PO PRN ×2 (09:33→13:34)
[2019-08-01 10:08] VITALS: BP 130/65
== END 2019-08-01 13:35 | disposition home or self-care (01) | DRG 560 ==
LOC: 2WR 09:45
PROVIDERS: ADMIT Physical Medicine & Rehabilitation; ATTEND Physical Medicine & Rehabilitation
DX: T84.54XA Infection and inflammatory reaction due to internal left knee prosthesis, initial encounter (principal); T80.219A Unspecified infection due to central venous catheter, initial encounter; Y83.8 Other surgical procedures as the cause of abnormal reaction of the patient, or of later complication, without mention of misadventure at the time of the procedure; G43.909 Migraine, unspecified, not intractable, without status migrainosus; G47.33 Obstructive sleep apnea (adult) (pediatric); I10 Essential (primary) hypertension; F43.10 Post-traumatic stress disorder, unspecified; G47.00 Insomnia, unspecified; K59.03 Drug induced constipation; T40.2X5A Adverse effect of other opioids, initial encounter; Y83.1 Surgical operation with implant of artificial internal device as the cause of abnormal reaction of the patient, or of later complication, without mention of misadventure at the time of the procedure; Y84.8 Other medical procedures as the cause of abnormal reaction of the patient, or of later complication, without mention of misadventure at the time of the procedure; Y92.89 Other specified places as the place of occurrence of the external cause; Z79.899 Other long term (current) drug therapy; Z80.6 Family history of leukemia; Z90.49 Acquired absence of other specified parts of digestive tract; Z90.710 Acquired absence of both cervix and uterus; Z79.01 Long term (current) use of anticoagulants
CPT/HCPCS: 85651; 86140; 87070; 87081; 97110; 97116; 97150; 97162; 97166; 97530; 97535; 99366; J1642; J3370; J7030; J7050; J7060

== ENCOUNTER → 2020-06-01 | Outpatient (CLI) | payer OTHER ==
[~2020-06-01] MED LIST changes: +ACID1TAB8 PO; -DICL75TA5 PO; -GABA-531 PO; +HYDR-4061 PO; -LOSA100T58 PO; +LOSA50TA37 PO; +PANT-31 PO; -TRAM50TA4 PO
[2020-06-01 10:10] LABS: BASOPHILS % (AUTO) 1.3 % (0.0-2.0); EOSINOPHILS % (AUTO) 3.7 % (1.0-6.0); HEMATOCRIT 42.2 % (36-46); HEMOGLOBIN 13.9 g/dL (12.0-16.0); LYMPHOCYTES # (AUTO) 1.4 K/uL (1.0-4.8); LYMPHOCYTES % (AUTO) 34.1 % (22.0-44.0); MEAN CORPUSCULAR HEMOGLOBIN 28.8 pg (26.0-34.0); MEAN CORPUSCULAR HGB CONC 32.9 G/dL (31.0-37.0); MEAN CORPUSCULAR VOLUME 88 fL (80-100); MONOCYTES # (AUTO) 0.4 K/uL (0.1-1.0); MONOCYTES % (AUTO) 8.6 % (2.0-9.0); NEUTROPHILS # (AUTO) 2.2 K/uL (1.8-7.7); NEUTROPHILS % (AUTO) 52.3 % (40.0-70.0); PLATELET COUNT (AUTO) 229 K/uL (150-450); RED BLOOD CELL COUNT(AUTO) 4.82 MIL/uL (4.00-5.20); RED CELL DISTRIBUTION WIDTH 14.1 % (11.5-14.5)
[2020-06-01 10:38] LABS: ALANINE AMINOTRANSFERASE 39 U/L (12-78); ALBUMIN 3.9 g/dL (3.4-5.0); ALKALINE PHOSPHATASE 86 U/L (46-116); ANION GAP 10 mmol/L (8-16); ASPARTATE AMINOTRANSFERASE 32 U/L (15-37); BILIRUBIN,TOTAL 0.2 mg/dL (0.1-1.0); CALCIUM, TOTAL 9.2 mg/dL (8.8-10.5); CARBON DIOXIDE 28 mmol/L (22-29); CHLORIDE 104 mmol/L (98-107); CHOL/HDL RATIO 3.1 (3.9-5.7); CHOLESTEROL 184 mg/dL (131-200); CREATININE 0.77 mg/dL (0.60-1.30); GLOMERULAR FILTR. RATE CALC > 60 mL/min (>60); GLUCOSE,RANDOM 111 mg/dL (70-110); HDL CHOLESTEROL 60 mg/dL (40-60); LDL CHOL (CALC.) 109 mg/dL (0-130); POTASSIUM 4.3 mmol/L (3.5-5.1); SODIUM SERUM 142 mmol/L (136-145); THYROID STIMULATING HORMONE 3.16 uIU/mL (0.36-3.74); TOTAL PROTEIN, SERUM 7.7 g/dL (6.4-8.2); TRIGLYCERIDES 77 mg/dL (15-150); UREA NITROGEN, BLOOD 23 mg/dL (7-18)
[2020-06-01 10:44] LABS: HEMOGLOBIN A1C 5.7 % (3.8-5.6)
== END | disposition home or self-care (01) ==
LOC: LABPV 07:46
PROVIDERS: ATTEND Internal Medicine
DX: E78.00 Pure hypercholesterolemia, unspecified (principal); Z79.899 Other long term (current) drug therapy
CPT/HCPCS: 82306; 83036; 83735; 84443

== ENCOUNTER → 2021-02-16 | Outpatient (CLI) | payer OTHER | END | disposition home or self-care (01) | LOC: RADPV 07:25 | PROVIDERS: ATTEND Orthopaedic Surgery | DX: M47.814 Spondylosis without myelopathy or radiculopathy, thoracic region (principal); Z01.818 Encounter for other preprocedural examination | CPT/HCPCS: 71046 ==

== ENCOUNTER → 2021-10-12 | Outpatient (CLI) | payer OTHER ==
[2021-10-12 09:51] LABS: EOSINOPHILS % (AUTO) 5.3 % (1.0-6.0); HEMATOCRIT 42.7 % (36-46); LYMPHOCYTES # (AUTO) 1.6 K/uL (1.0-4.8); LYMPHOCYTES % (AUTO) 28.8 % (22.0-44.0); MEAN CORPUSCULAR HEMOGLOBIN 28.9 pg (26.0-34.0); MEAN CORPUSCULAR HGB CONC 32.8 G/dL (31.0-37.0); MEAN CORPUSCULAR VOLUME 88 fL (80-100); MONOCYTES # (AUTO) 0.4 K/uL (0.1-1.0); MONOCYTES % (AUTO) 7.2 % (2.0-9.0); NEUTROPHILS # (AUTO) 3.1 K/uL (1.8-7.7); NEUTROPHILS % (AUTO) 57.7 % (40.0-70.0); PLATELET COUNT (AUTO) 231 K/uL (150-450); RED BLOOD CELL COUNT(AUTO) 4.83 MIL/uL (4.00-5.20); RED CELL DISTRIBUTION WIDTH 13.8 % (11.5-14.5)
[2021-10-12 09:59] LABS: APPEARANCE,URINE CLOUDY (CLEAR); BILIRUBIN,URINE NEGATIVE (NEGATIVE); GLUCOSE, URINE (UA) NEGATIVE (NEGATIVE); KETONES,URINE NEGATIVE (NEGATIVE); LEUKOCYTE ESTERASE ,URINE NEGATIVE (NEGATIVE); NITRATE,URINE NEGATIVE (NEGATIVE); OCCULT BLOOD,URINE SMALL (NEGATIVE); PROTEIN,URINE NEGATIVE (NEGATIVE); UROBILINOGEN,URINE 0.2 mg/dL (<=1.0)
[2021-10-12 10:10] LABS: BACTERIA,URINE None Seen /HPF (None Seen); RBC,URINE 0-2 /HPF (0-2); SQUAMOUS EPITHELIAL CELL,UR Few /LPF (None Seen)
[2021-10-12 10:18] LABS: ALANINE AMINOTRANSFERASE 39 U/L (12-78); ALBUMIN 3.8 g/dL (3.4-5.0); ALKALINE PHOSPHATASE 84 U/L (46-116); ANION GAP 4 mmol/L (8-16); ASPARTATE AMINOTRANSFERASE 24 U/L (15-37); BILIRUBIN,TOTAL 0.2 mg/dL (0.1-1.0); CALCIUM, TOTAL 9.3 mg/dL (8.8-10.5); CARBON DIOXIDE 33 mmol/L (22-29); CHLORIDE 105 mmol/L (98-107); CHOL/HDL RATIO 3.5 (3.9-5.7); CHOLESTEROL 172 mg/dL (131-200); CREATININE 0.63 mg/dL (0.60-1.30); GLOMERULAR FILTR. RATE CALC > 60 mL/min (>60); GLUCOSE,RANDOM 94 mg/dL (70-110); HDL CHOLESTEROL 49 mg/dL (40-60); LDL CHOL (CALC.) 103 mg/dL (0-130); POTASSIUM 4.6 mmol/L (3.5-5.1); SODIUM SERUM 142 mmol/L (136-145); THYROID STIMULATING HORMONE 3.83 uIU/mL (0.36-3.74); TOTAL PROTEIN, SERUM 7.4 g/dL (6.4-8.2); TRIGLYCERIDES 100 mg/dL (15-150); UREA NITROGEN, BLOOD 18 mg/dL (7-18)
== END | disposition home or self-care (01) ==
LOC: LABPV 07:13
PROVIDERS: ATTEND Internal Medicine
DX: E78.00 Pure hypercholesterolemia, unspecified (principal); R30.0 Dysuria; Z79.899 Other long term (current) drug therapy
CPT/HCPCS: 80053; 80061; 81001; 82043; 82570; 83036; 84443; 85025; 87086

== ENCOUNTER → 2022-02-15 | Outpatient (CLI) | payer OTHER ==
[~2022-02-15] MED LIST changes: +LOSA-382 PO; -LOSA50TA37 PO
== END | disposition home or self-care (01) ==
LOC: RADMN 13:44
PROVIDERS: ATTEND Internal Medicine
DX: M47.816 Spondylosis without myelopathy or radiculopathy, lumbar region (principal); M54.50 Low back pain, unspecified; M54.30 Sciatica, unspecified side; M62.838 Other muscle spasm
CPT/HCPCS: 72100

== ENCOUNTER → 2022-03-06 | Outpatient (CLI) | payer OTHER | END | disposition home or self-care (01) | LOC: RADMN 13:33 | PROVIDERS: ATTEND Internal Medicine | DX: M47.817 Spondylosis without myelopathy or radiculopathy, lumbosacral region (principal); M43.17 Spondylolisthesis, lumbosacral region; M51.26 Other intervertebral disc displacement, lumbar region; M43.16 Spondylolisthesis, lumbar region | CPT/HCPCS: 72148 ==

== ENCOUNTER → 2022-04-18 | Outpatient (CLI) | payer OTHER ==
[2022-04-18 17:00] LABS: BASOPHILS % (AUTO) 1.1 % (0.0-2.0); EOSINOPHILS % (AUTO) 2.2 % (1.0-6.0); HEMATOCRIT 43.3 % (36-46); HEMOGLOBIN 14.4 g/dL (12.0-16.0); LYMPHOCYTES % (AUTO) 33.3 % (22.0-44.0); MEAN CORPUSCULAR HEMOGLOBIN 28.9 pg (26.0-34.0); MEAN CORPUSCULAR HGB CONC 33.3 G/dL (31.0-37.0); MEAN CORPUSCULAR VOLUME 87 fL (80-100); MONOCYTES # (AUTO) 0.4 K/uL (0.1-1.0); MONOCYTES % (AUTO) 6.1 % (2.0-9.0); NEUTROPHILS # (AUTO) 3.4 K/uL (1.8-7.7); NEUTROPHILS % (AUTO) 57.3 % (40.0-70.0); PLATELET COUNT (AUTO) 200 K/uL (150-450); RED CELL DISTRIBUTION WIDTH 14.3 % (11.5-14.5)
[2022-04-18 18:43] LABS: ERYTHROCYTE SEDIMENTATION RATE 8 MM/HR (0-20)
== END | disposition home or self-care (01) ==
LOC: LABMN 16:27
PROVIDERS: ATTEND Orthopaedic Surgery
DX: M25.562 Pain in left knee (principal); Z96.652 Presence of left artificial knee joint
CPT/HCPCS: 85025; 85651; 86140

== ENCOUNTER → 2022-05-17 | Outpatient (CLI) | payer OTHER ==
[2022-05-17 12:20] LABS: ALANINE AMINOTRANSFERASE 35 U/L (12-78); ALKALINE PHOSPHATASE 81 U/L (46-116); ANION GAP 9 mmol/L (8-16); ASPARTATE AMINOTRANSFERASE 24 U/L (15-37); BILIRUBIN,TOTAL 0.4 mg/dL (0.1-1.0); CALCIUM, TOTAL 9.1 mg/dL (8.8-10.5); CARBON DIOXIDE 26 mmol/L (22-29); CHLORIDE 103 mmol/L (98-107); CHOL/HDL RATIO 2.9 (3.9-5.7); CHOLESTEROL 191 mg/dL (131-200); CREATININE 0.58 mg/dL (0.60-1.30); GLUCOSE,RANDOM 88 mg/dL (70-110); HDL CHOLESTEROL 65 mg/dL (40-60); LDL CHOL (CALC.) 109 mg/dL (0-130); POTASSIUM 3.8 mmol/L (3.5-5.1); SODIUM SERUM 138 mmol/L (136-145); THYROID STIMULATING HORMONE 1.39 uIU/mL (0.36-3.74); TOTAL PROTEIN, SERUM 7.6 g/dL (6.4-8.2); TRIGLYCERIDES 83 mg/dL (15-150); UREA NITROGEN, BLOOD 16 mg/dL (7-18)
[2022-05-17 12:27] LABS: GLOMERULAR FILTR. RATE CALC > 60 mL/min (>60)
[2022-05-17 12:35] LABS: HEMOGLOBIN A1C 5.8 % (3.8-5.6)
== END | disposition home or self-care (01) ==
LOC: LABPV 07:13
PROVIDERS: ATTEND Internal Medicine
DX: R79.89 Other specified abnormal findings of blood chemistry (principal); R73.09 Other abnormal glucose; M62.838 Other muscle spasm
CPT/HCPCS: 80053; 80061; 82043; 82306; 82570; 83036; 83735; 84443

== ENCOUNTER 2022-06-15 15:24 | Emergency (ER) | payer OTHER ==
[~2022-06-15] VITALS: Ht 165.1 cm; Wt 104.5 kg
[2022-06-15 15:36] VITALS: BP 154/92
[2022-06-15] MEDS ORDERED: AMLO-258 PO (15:45)
[2022-06-15] MEDS ORDERED: SUMA25TA9 PO (15:45)
[2022-06-15] MEDS ORDERED: ERGO500054 PO (15:45)
[2022-06-15] MEDS ORDERED: ALBU8HFA IH (15:45)
[2022-06-15] MEDS ORDERED: CYCL-448 PO (15:45)
[2022-06-15] MEDS ORDERED: LEVO25TA9 PO (15:45)
[2022-06-15] MEDS ORDERED: MORPHINE SULFATE 15 MG IR TABLET PO ONE (16:45)
[2022-06-15] MEDS ORDERED: KETOROLAC TROMETHAMINE 60 MG/2 ML VIAL IM ONE (17:45)
[2022-06-15] MEDS ORDERED: METH-812 PO (18:19)
== END 2022-06-15 18:50 | disposition home or self-care (01) ==
LOC: EMS 15:27
DX: M79.651 Pain in right thigh (principal); G89.29 Other chronic pain; I11.0 Hypertensive heart disease with heart failure; E03.9 Hypothyroidism, unspecified; J45.909 Unspecified asthma, uncomplicated; I25.10 Atherosclerotic heart disease of native coronary artery without angina pectoris; Z79.899 Other long term (current) drug therapy
CPT/HCPCS: 99283; 96372; J1885

== ENCOUNTER → 2022-07-19 | Outpatient (CLI) | payer OTHER ==
[~2022-07-19] MED LIST changes: +ALBU8HFA IH; +AMLO-258 PO; +CYCL-448 PO; +ERGO500054 PO; +LEVO25TA9 PO; +METH-812 PO; +SUMA25TA9 PO
== END | disposition home or self-care (01) ==
LOC: RADMN 10:57
PROVIDERS: ATTEND Psychiatry & Neurology Neurology
DX: S76.219A Strain of adductor muscle, fascia and tendon of unspecified thigh, initial encounter (principal); X58.XXXA Exposure to other specified factors, initial encounter; Y93.89 Activity, other specified; Y92.89 Other specified places as the place of occurrence of the external cause; Y99.8 Other external cause status
CPT/HCPCS: 73718